=== PATIENT | male | born 1965 | race African-American/Black ===

== ENCOUNTER 2016-07-26 00:47 | Inpatient (IN) | payer SELFPAY ==
[~2016-07-26] VITALS: Ht 188 cm; Wt 130.7 kg
[~2016-07-26 00:47] MED LIST: CYCL10TA2 PO; LIDO700A4 TP; LISI-334 PO; NAPR500T3 PO
[2016-07-26 03:17] LABS: BASO % 1 % (0-3); EOS % 1 % (0-3); HEMATOCRIT 41.3 % (39.0-53.0); HEMOGLOBIN 13.8 g/dL (13.0-17.5); LYMPH # 0.5 x10^3/uL (1.0-4.8); LYMPH % 10 % (24-48); MEAN CORPUSCULAR HEMOGLOBIN 31 pg (25-35); MEAN CORPUSCULAR HGB CONC 33 g/dL (31-37); MEAN CORPUSCULAR VOLUME 93 fL (79-100); MONO % 15 % (0-9); NEUT % 74 % (31-73); PLATELET COUNT 162 x10^3/uL (140-400); RED BLOOD COUNT 4.46 x10^6/uL (4.30-5.70); RED CELL DISTRIBUTION WIDTH 13.4 % (11.5-14.5); WHITE BLOOD COUNT 5.3 x10^3/uL (4.0-11.0)
[2016-07-26 03:18] LABS: BILIRUBIN,URINE NEGATIVE (NEG); GLUCOSE,URINE NEGATIVE (NEG); NITRITE,URINE NEGATIVE (NEG); PROTEIN,URINE NEGATIVE (NEG-TRACE)
[2016-07-26 03:20] LABS: BACTERIA,URINE 0 /HPF (0-FEW); SQUAMOUS EPITHELIAL CELL,UR OCC /LPF; WBC,URINE OCC /HPF (0-4)
[2016-07-26 03:30] LABS: CALCIUM 9.2 mg/dL (8.5-10.1); CREATININE 1.1 mg/dL (0.7-1.3); GFR 86.1; POTASSIUM 3.9 mmol/L (3.5-5.1)
[2016-07-26 03:36] LABS: ALBUMIN 3.9 g/dL (3.4-5.0); DIRECT BILIRUBIN 0.1 mg/dL (0.0-0.2); TOTAL BILIRUBIN 0.4 mg/dL (0.2-1.0); TOTAL PROTEIN 7.6 g/dL (6.4-8.2)
[2016-07-26] MEDS ORDERED: ASPIRIN 325 MG TABLET ONE (04:40)
[2016-07-26] MEDS ORDERED: ASPIRIN 81 MG TAB.CHEW PO ONE (04:45)
[2016-07-26 05:05] LABS: OBC FLU VALID
--- NOTE | 2016-07-26 06:27 | PHYS DOC ---
Past Medical History Past Medical History: Hypertension, Renal Disease Additional Past Medical Histor: drug abuse Past Surgical History: Tonsillectomy Alcohol Use: Rarely Drug Use: Marijuana Adult General Chief Complaint Chief Complaint: MULTIPLE COMPLAINTS HPI HPI 51-year-old male presenting to the emergency department with cough fever and generalized body aches with nausea. Onset 2-3 days. Location lungs generalized. Duration intermittent. No alleviating factors present. Timing worse at night. Review of systems is positive for chest pain cough fevers chills myalgias headache. All other review of systems is negative unless otherwise noted in history of present illness. Review of Systems Review of Systems SEE ABOVE. Current Medications Current Medications Current Medications Medications (Trade) Dose Ordered Sig/Franko Start Time Stop Time Status Last Admin Dose Admin Aspirin (Danielle Aspirin) 325 mg STK-MED ONCE 07/26/16 04:40 07/26/16 04:41 DC Aspirin (Children'S Aspirin) 324 mg 1X ONCE 07/26/16 04:45 07/26/16 05:08 DC 07/26/16 04:45 324 MG Labetalol HCl (Normodyne) 20 mg 1X ONCE 07/26/16 06:30 07/26/16 06:31 Allergies Allergies Allergies Coded Allergies Type Severity Reaction Last Updated Verified No Known Drug Allergies 03/10/14 No Physical Exam Physical Exam Constitutional: Well developed, well nourished, no acute distress, non-toxic appearance. [] HENT: Normocephalic, atraumatic, bilateral external ears normal, oropharynx moist, no oral exudates, nose normal. Eyes: PERRLA, EOMI, conjunctiva normal, no discharge. Neck: Normal range of motion, no tenderness, supple, no stridor. [] Cardiovascular:Heart rate regular rhythm, no murmur Lungs & Thorax: Bilateral breath sounds clear to auscultation Abdomen: Bowel sounds normal, soft, no tenderness, no masses, no pulsatile masses. [] Skin: Warm, dry, no erythema, no rash. Back: No tenderness, no CVA tenderness. [] Extremities: No tenderness, no cyanosis, no clubbing, ROM intact, no edema. Neurologic: Alert and oriented X 3, normal motor function, normal sensory function, no focal deficits noted. [] Psychologic: Affect normal, judgement normal, mood normal. [] Current Patient Data Vital Signs Vital Signs Date Time Temp Pulse Resp B/P Pulse Ox O2 Delivery O2 Flow Rate FiO2 07/26/16 02:30 116 22 208/127 95 Room Air 07/26/16 01:10 100.3 100.3 Lab Values Laboratory Tests Test 07/26/16 02:35 07/26/16 03:10 07/26/16 04:38 Urine Collection Type Unknown Urine Color Yellow Urine Clarity Clear Urine pH 7.0 Urine Specific [place] 1.020 Urine Protein Negativemg/dL (NEG-TRACE) Urine Glucose (UA) Negativemg/dL (NEG) Urine Ketones (Stick) Negativemg/dL (NEG) Urine Blood Negative (NEG) Urine Nitrite Negative (NEG) Urine Bilirubin Negative (NEG) Urine Urobilinogen Dipstick 1.0mg/dL (0.2 mg/dL) Urine Leukocyte Esterase Negative (NEG) Urine RBC 1-2/HPF (0-2) Urine WBC Occ/HPF (0-4) Urine Squamous Epithelial Cells Occ/LPF Urine Amorphous Sediment Present/HPF Urine Bacteria 0/HPF (0-FEW) Urine Mucus Slight/LPF White Blood Count 5.3x10^3/uL (4.0-11.0) Red Blood Count 4.46x10^6/uL (4.30-5.70) Hemoglobin 13.8g/dL (13.0-17.5) Hematocrit 41.3% (39.0-53.0) Mean Corpuscular Volume 93fL (79-100) Mean Corpuscular Hemoglobin 31pg (25-35) Mean Corpuscular Hemoglobin Concent 33g/dL (31-37) Red Cell Distribution Width 13.4% (11.5-14.5) Platelet Count 162x10^3/uL (140-400) Neutrophils (%) (Auto) 74% (31-73) H Lymphocytes (%) (Auto) 10% (24-48) L Monocytes (%) (Auto) 15% (0-9) H Eosinophils (%) (Auto) 1% (0-3) Basophils (%) (Auto) 1% (0-3) Neutrophils # (Auto) 3.9x10^3uL (1.8-7.7) Lymphocytes # (Auto) 0.5x10^3/uL (1.0-4.8) L Monocytes # (Auto) 0.8x10^3/uL (0.0-1.1) Eosinophils # (Auto) 0.0x10^3/uL (0.0-0.7) Basophils # (Auto) 0.0x10^3/uL (0.0-0.2) Sodium Level 137mmol/L (136-145) Potassium Level 3.9mmol/L (3.5-5.1) Chloride Level 100mmol/L (98-107) Carbon Dioxide Level 28mmol/L (21-32) Anion Gap 9 (6-14) Blood Urea Nitrogen 11mg/dL (8-26) Creatinine 1.1mg/dL (0.7-1.3) Estimated GFR (Cockcroft-Gault) 86.1 Glucose Level 132mg/dL (70-99) H Calcium Level 9.2mg/dL (8.5-10.1) Total Bilirubin 0.4mg/dL (0.2-1.0) Direct Bilirubin 0.1mg/dL (0.0-0.2) Aspartate Amino Transferase (AST) 18U/L (15-37) Alanine Aminotransferase (ALT) 28U/L (16-63) Alkaline Phosphatase 58U/L (46-116) Troponin I Quantitative 0.072ng/mL (0.000-0.055) PG-Sty-O-Type Natriuretic Peptide 228pg/mL (0-124) H Total Protein 7.6g/dL (6.4-8.2) Albumin 3.9g/dL (3.4-5.0) Lipase 69U/L (73-393) L Influenza Type A Antigen Positive (NEGATIVE) Influenza Type B Antigen Negative (NEGATIVE) Laboratory Tests 07/26/16 03:10 Laboratory Tests 07/26/16 03:10 EKG EKG Sinus rhythm with a tachycardic rate. [place] is leftward. Intervals within normal limits. Mild repolarization abnormality in lead V3 that is isolated. Radiology/Procedures Radiology/Procedures [] Course & Med Decision Making Course & Med Decision Making Pertinent Labs and Imaging studies reviewed. (See chart for details) [] 51-year-old male presenting to the emergency department vital signs showed fever with tachycardia. Influenza test positive. Blood pressure elevated. On physical exam clear lungs bilaterally. EKG showed tachycardia otherwise unremarkable. Chest x-ray without obvious infiltrate or pneumothorax. Otherwise blood testing sent which showed elevated troponin. Influenza positive. Patient was given IV labetalol, Tamiflu, and aspirin. The patient was then admitted to our hospital for further evaluation workup and care. Dragon Disclaimer Dragon Disclaimer This electronic medical record was generated, in whole or in part, using a voice recognition dictation system. Departure Departure Impression: Primary Impression: Influenza Additional Impressions: Elevated troponin Hypertension Disposition: ADMITTED INPATIENT Admitting Physician: Abhishek Clark Condition: STABLE Referrals: NO PCP (PCP) Problem Qualifiers TARIQ MONET MD Jul 26, 2016 06:27
[2016-07-26] MEDS ORDERED: OSELTAMIVIR 75 MG CAPSULE PO ONE (06:30)
[2016-07-26] MEDS ORDERED: LABETALOL 20 MG/4 ML DISP.SYRIN. IVP ONE (06:30)
--- NOTE | 2016-07-26 07:40 | RAD ---
Single view chest History:COUGH, CHEST PAIN . An AP view of the chest is submitted. Comparison: None. Findings: There is some fullness in the region of azygos. Heart size is considered upper limits of normal. There is no dependent pleural fluid or pneumothorax. There is no lobar consolidation. Impression: There is some fullness in region of azygous, cannot exclude lymphadenopathy on this exam, follow-up [address] recommended. There is no infiltrate.
--- NOTE | 2016-07-26 08:31 | ACF ---
Admit Criteria Forms Admit Criteria Forms Admit Criteria Forms CHEST PAIN Clinical Indications for Admission to Inpatient Care (Place 'X' for any and all applicable criteria): Admission is indicated for chest pain and ANY ONE of the following(1)(2)(3)(4)(5 ): [ ]I. Angina with acute coronary syndrome (Also use Myocardial Infarction or Angina guideline) [ ]II. Hemodynamic instability [ ]III. Angina needing acute intervention as indicated by ALL of the following( 11)(12): [ ]a) Unstable angina is present as indicated by angina that is ANY ONE of the following: [ ]i) New onset [ ]ii) Nocturnal [ ]iii) Prolonged at rest [ ]iv) Progressive [ ]b) Angina warrants acute intervention as indicated by ANY ONE of the following: [ ]i) Recurrent angina (e.g, not responding as previously to treatment) [ ]ii) Angina at rest or with low-level activities despite initial medical therapy [ ]iii) New or presumably new ST-segment depression on ECG [ ]iv) Signs or symptoms of heart failure (eg, dyspnea, pulmonary edema) [ ]v) New or worsening mitral regurgitation [ ]vi) Hemodynamic instability [ ]vii) Dangerous arrhythmia (eg, sustained ventricular tachycardia) [ ]viii) History of percutaneous coronary intervention within 6 months [ ]ix) History of coronary artery bypass graft surgery [ ]x) JOHN risk score of 2 or greater[A] [ ]xi) History of Diabetes(14) [ ]xii) High-risk cardiac ischemia findings on noninvasive testing (e.g, echocardiogram, treadmill testing, nuclear scan) [ ]xiii) Chronic renal insufficiency (ie, estimated GFR less than 60 mL/min/1.732m) [ ]xiv) Left ventricular ejection fraction less than 40% [ ]IV. Evidence of VA (eg, cardiac biomarkers positive, ST-segment elevation on ECG) also use Myocardial Infarction Criteria Form. [ ]V. Pulmonary edema [ ]. Respiratory distress [ ]VII. Chest pain indicative of serious diagnosis other than coronary artery disease (eg, aortic dissection) [X]VIII. Contraindications and/or Inappropriate clinical situations for Observational Care in patients with Chest Pain, when ANY ONE of the following is required: [ ]a) Patient with risk factor for pulmonary embolism, acute coronary syndrome and myocardial infarction (18) [ ]b) Patient with Pulmonary embolism require an average LOS of 4.3 days, therefore emergency department observation management is inappropriate 18,23 [ ]c) Painful condition/s in the elderly, have the highest rate of recidivism after emergency department observation management (10.8%) 20,21,22 [X]d) Elevated cardiac biomarker requires intensive and exhaustive care (19) [ ]IX. General contraindications and/or Inappropriate clinical situations for Observational Care in patients with Chest Pain, when ANY ONE of the following is required: [ ]a) Prediction of prolongation of LOS based on ANY ONE of the following may be considered as a contraindication for observational care 2, 3, 4, 5, 6, 7, 8, 9, 10, 11 [ ]i) Age > 65 yrs. [ ]ii) Patient arriving by ambulance [ ]iii) Patient with high acuity [ ]iv) Patient requiring vital sign monitoring [ ]v) Patient on IV medication [ ]b) Systolic blood pressures 180mmHg 3,12 [ ]c) Patient with altered mental status including delirium and other alteration of consciousness, (3) [ ]d) Patient whose discharge disposition will be to a [facility] home or rehabilitation home should not be managed in Emergency Department Observation Unit. CMS rule requires 3 days hospital stay before such placement. 3,13 [ ]e) Patient with failure to thrive due to broad array of etiologies 3,16,17 [ ]f) Inability to ambulate 3,14 Extended stay beyond goal length of stay may be needed for (1)(28): [ ]a) Specific condition diagnosed after evaluation (eg, pulmonary embolism, aortic dissection) [ ]b) Unstable angina [ ]c) Continued suspicion of acute coronary syndrome with inability to complete needed cardiac evaluation (eg, patient clinically unable to undergo stress testing) [ ]d) Myocardial infarction (Contents from ANGINA and CHEST PAIN clinical indications for admission to inpatient care have been integrated in this form) The original [employer] content created by [employer] has been revised. The portions of the content which have been revised are identified through the use of italic text or in bold, and [facility] has neither reviewed nor approved the modified material. All other unmodified content is copyright [employer]. Please see references footnoted in the original [facility] edition 2016 KLEBER WARD Jul 26, 2016 08:31
[2016-07-26] MEDS: IV NORMAL SALINE 1000ML BAG 1,000 ML IV SCH ×2 (08:51→22:18)
[2016-07-26] MEDS: ENOXAPARIN 40 MG/0.4 ML DISP.SYRIN. SQ SCH (08:52)
[2016-07-26] MEDS: ASPIRIN 325 MG TABLET PO SCH (08:52)
[2016-07-26] MEDS: MORPHINE SULFATE 2 MG/ML DISP.SYRIN. IV PRN (08:53)
[2016-07-26] MEDS: HYDROCHLOROTHIAZIDE 25 MG TABLET PO SCH (09:41)
[2016-07-26] MEDS ORDERED: LISINOPRIL 10 MG TABLET PO SCH (10:00)
[2016-07-26] MEDS ORDERED: NAPROXEN 500 MG TABLET PO PRN (11:30)
[2016-07-26] MEDS ORDERED: POTASSIUM CHLORIDE 20 MEQ TABLET.ER. PO ONE (13:45)
[2016-07-26] MEDS ORDERED: FUROSEMIDE 40 MG/4 ML VIAL IVP ONE (13:45)
[2016-07-26 15:00] VITALS: BP 171/120
--- NOTE | 2016-07-26 15:37 | CONS ---
DATE OF CONSULTATION: 07/26/2016 REASON FOR CONSULTATION: Chest pain. HISTORY OF PRESENT ILLNESS: The patient is a pleasant 49-year-old gentleman without any significant past medical history except for hypertension for which he has not been taking his medications, presents to the hospital with progressive cough and sputum production and has been diagnosed with influenza type A illness. He reports chest pain with coughing. Does not have any angina at home. He is an active individual and has not had any dyspnea prior to presentation with this illness. PAST MEDICAL HISTORY: Hypertension. SOCIAL HISTORY: The patient denies any alcohol, tobacco or illicit drug use. He is not . FAMILY HISTORY: Noncontributory. ALLERGIES: No known drug allergies. CURRENT CARDIOVASCULAR MEDICATIONS: 1. Hydrochlorothiazide 25 mg daily. 2. Aspirin 325 mg daily. REVIEW OF SYSTEMS: Negative for 10 out of 14 systems reviewed, unless otherwise mentioned above in HPI. PHYSICAL EXAMINATION: VITAL SIGNS: Afebrile, 86, 18, 172/120, pulse ox 99%. GENERAL: He is alert and oriented, in no acute distress. HEAD AND NECK: Unremarkable. HEART: Regular rate and rhythm without any murmurs, rubs or gallops. LUNGS: Clear to auscultation. ABDOMEN: Soft, nontender, nondistended. EXTREMITIES: Without clubbing, cyanosis or edema. NEUROLOGIC: No focal deficits. MUSCULOSKELETAL: No trauma. LABORATORY DATA: Influenza type A positivity, normal creatinine with mildly elevated troponin to 0.072, now down trending to 0.059 in the setting of malignant hypertension with systolic blood pressures above 180. Chest x-ray is notable for some possible lymphadenopathy, but otherwise no obvious focal infiltrates are noted. EKG reviewed and is unremarkable. IMPRESSION: 1. Influenza positive presentation with pulmonary disease. 2. Positive troponin, likely in the setting of malignant hypertension and acute distress. RECOMMENDATIONS: 1. At this present time, suggest continue treatment for his influenza. 2. Continue aspirin and blood pressure treatment for his known hypertensive heart disease. 3. No further cardiac testing necessary at this time. Continue supportive care. Follow up on an outpatient basis, he has any further cardiac symptoms. We will attempt to initiate him on medications for his hypertension and hopefully we will be able to achieve blood pressure control next 24 hours. Anticipate discharge from a cardiac perspective tomorrow if there are no further issues. Thank you for this consultation. TRACY PEREZ MD DR: DENISE/giles JOB#: [id number] / [id number]
[2016-07-26] MEDS ORDERED: SODIUM CHLORIDE 0.65% NASAL SPRAY 45ML BOTTLE. NS PRN (16:30)
[2016-07-26] MEDS: CHLORTHALIDONE 25 MG TABLET PO SCH (17:17)
[2016-07-26] MEDS: CARVEDILOL 12.5 MG TABLET PO SCH (17:18)
[2016-07-26] MEDS: LISINOPRIL 10 MG TABLET PO SCH (17:18)
--- NOTE | 2016-07-26 18:50 | EKG ---
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
[2016-07-26 19:00] VITALS: BP 162/101
[2016-07-26 19:51] VITALS: BP 162/101
[2016-07-26 20:39] VITALS: BP 150/112
[2016-07-26 23:41] VITALS: BP 166/96
[2016-07-27 02:12] VITALS: BP 174/105
[2016-07-27] MEDS: CYCLOBENZAPRINE 10 MG TABLET. PO PRN ×2 (02:27→10:00)
[2016-07-27] MEDS: MORPHINE SULFATE 2 MG/ML DISP.SYRIN. IV PRN (02:28)
--- NOTE | 2016-07-27 05:20 | HP ---
ADMIT DATE: 07/26/2016 CHIEF COMPLAINT: Cough, fever, weakness and nausea. HISTORY OF PRESENT ILLNESS: The patient is a pleasant middle-aged male who presents with the above chief complaints that have been occurring for 3 days. He tried increasing his home meds, was not working. While in the ER, he was noted to have an elevated troponin of 0.072. He is also flu positive. I have discussed the case with ER physician. We are going to admit the patient, give him Tamiflu and do a cardiac workup. PAST MEDICAL HISTORY: Hypertension, renal disease, drug abuse, tonsillectomy. ALLERGIES: None. FAMILY HISTORY: Hypertension. SOCIAL HISTORY: He smokes marijuana. He does not drink. I guess he used to use drugs. MEDICATIONS: Reviewed, please refer to the MRAD. REVIEW OF SYSTEMS: GENERAL: No history of weight change, weakness or fevers. SKIN: No bruising, hair changes or rashes. EYES: No blurred, double or loss of vision. NOSE AND THROAT: No history of nosebleeds, hoarseness or sore throat. HEART: No history of palpitations, chest pain or shortness of breath on exertion. LUNGS: He complains of shortness of breath, cough and weakness. GASTROINTESTINAL: Denies changes in appetite, nausea, vomiting, diarrhea or constipation. GENITOURINARY: No history of frequency, urgency, hesitancy or nocturia. NEUROLOGIC: Denies history of numbness, tingling, tremor or weakness. PSYCHIATRIC: No history of panic, anxiety or depression. ENDOCRINE: No history of heat or cold intolerance, polyuria or polydipsia. EXTREMITIES: Denies muscle weakness, joint pain, pain on walking or stiffness. PHYSICAL EXAMINATION: VITAL SIGNS: Temperature afebrile, pulse 74, respirations 18, blood pressure ____. HEART: Distant S1, S2. LUNGS: Slight hoarseness with some crackles on the right base. ENDOCRINE: No thyromegaly. LYMPHATICS: No cervical nodes. HEMATOPOIETIC: No bruising. ABDOMEN: Soft, positive bowel sounds. EXTREMITIES: No edema. SKIN: No rashes. PSYCHIATRIC: He is a little depressed. VASCULAR: Good capillary refill. LABORATORY DATA: Electrolytes normal other than glucose of 132.: Troponin is 0.072. BNP 228, lipase 69. White count 5, hemoglobin 13, platelets 162. Urinalysis negative. Flu testing is positive for influenza A. ASSESSMENT AND PLAN: Influenza A and elevated troponin. The patient is being admitted. We will give him Tamiflu. Consult Infectious Disease and Cardiology. Continue home medicines, IV fluids. Consult Pulmonary Medicine. ISMAEL KAPLAN DO DR: SARAH BETH/giles JOB#: [id number] / [id number]
[2016-07-27 06:23] LABS: CALCIUM 9.2 mg/dL (8.5-10.1); CREATININE 1.1 mg/dL (0.7-1.3); GFR 86.1; POTASSIUM 3.7 mmol/L (3.5-5.1)
[2016-07-27] MEDS ORDERED: LISINOPRIL 20 MG TABLET PO SCH (09:00)
[2016-07-27] MEDS ORDERED: LIDOCAINE (700MG/PATCH) PATCH. TP SCH (09:00)
[2016-07-27] MEDS: ENOXAPARIN 40 MG/0.4 ML DISP.SYRIN. SQ SCH (09:00)
[2016-07-27] MEDS: CHLORTHALIDONE 25 MG TABLET PO SCH (09:59)
[2016-07-27] MEDS: HYDROCHLOROTHIAZIDE 25 MG TABLET PO SCH (09:59)
[2016-07-27] MEDS: ASPIRIN 325 MG TABLET PO SCH (10:00)
[2016-07-27] MEDS: CARVEDILOL 12.5 MG TABLET PO SCH (10:00)
[2016-07-27] MEDS: LISINOPRIL 10 MG TABLET PO SCH (10:00)
[2016-07-27] MEDS: IV NORMAL SALINE 1000ML BAG 1,000 ML IV SCH (10:10)
[2016-07-27 10:38] VITALS: BP 140/111
[2016-07-27 10:43] LABS: PLT ESTIMATE ADEQUATE (ADEQUATE)
[2016-07-27 10:46] LABS: MEAN CORPUSCULAR VOLUME 94 fL (79-100); PLATELET COUNT 163 x10^3/uL (140-400); RED CELL DISTRIBUTION WIDTH 13.3 % (11.5-14.5); WHITE BLOOD COUNT 3.2 x10^3/uL (4.0-11.0)
[2016-07-27 10:47] VITALS: BP 150/103
[2016-07-27 11:11] LABS: BASO % 1 % (0-3); EOS % 0 % (0-3); HEMATOCRIT 43.7 % (39.0-53.0); HEMOGLOBIN 14.4 g/dL (13.0-17.5); LYMPH # 1.1 x10^3/uL (1.0-4.8); LYMPH % 34 % (24-48); MEAN CORPUSCULAR HEMOGLOBIN 31 pg (25-35); MEAN CORPUSCULAR HGB CONC 33 g/dL (31-37); MONO % 18 % (0-9); NEUT % 47 % (31-73); RED BLOOD COUNT 4.63 x10^6/uL (4.30-5.70)
[2016-07-27] MEDS ORDERED: CHLO25TA PO (11:29)
[2016-07-27] MEDS ORDERED: LISI-334 PO (11:29)
[2016-07-27] MEDS ORDERED: HYDR25TA9 PO (11:29)
[2016-07-27] MEDS ORDERED: CARV12.52 PO (11:29)
[2016-07-27] MEDS ORDERED: OSEL75CA PO (11:30)
[2016-07-27] MEDS ORDERED: LISINOPRIL 10 MG TABLET PO ONE (11:30)
[2016-07-27] MEDS ORDERED: FUROSEMIDE 20 MG/2 ML VIAL IVP ONE (11:30)
--- NOTE | 2016-07-27 11:33 | PDOC ---
PROGRESS NOTES Chief Complaint Chief Complaint CC: chest pain HTN URGENCY plan HCTZ LASIX LISINOPRIL ANTICIPATED DC TODAY IF SBP <150 Vitals Vitals Vital Signs Date Time Temp Pulse Resp B/P Pulse Ox O2 Delivery O2 Flow Rate FiO2 07/27/16 10:47 150/103 07/27/16 10:38 97.5 104 16 95 Room Air 97.5 Physical Exam General: Alert, Oriented X3 Heart: Normal S1, Normal S2 Lungs: Clear Abdomen: Normal bowel sounds, Soft Labs LABS Laboratory Tests Test 07/26/16 13:00 07/26/16 18:15 07/27/16 03:00 Troponin I Quantitative 0.059ng/mL (0.000-0.055) 0.070ng/mL (0.000-0.055) White Blood Count 3.2x10^3/uL (4.0-11.0) Red Blood Count 4.63x10^6/uL (4.30-5.70) Hemoglobin 14.4g/dL (13.0-17.5) Hematocrit 43.7% (39.0-53.0) Mean Corpuscular Volume 94fL (79-100) Mean Corpuscular Hemoglobin 31pg (25-35) Mean Corpuscular Hemoglobin Concent 33g/dL (31-37) Red Cell Distribution Width 13.3% (11.5-14.5) Platelet Count 163x10^3/uL (140-400) Neutrophils (%) (Auto) 47% (31-73) Lymphocytes (%) (Auto) 34% (24-48) Monocytes (%) (Auto) 18% (0-9) Eosinophils (%) (Auto) 0% (0-3) Basophils (%) (Auto) 1% (0-3) Neutrophils # (Auto) 1.5x10^3uL (1.8-7.7) Lymphocytes # (Auto) 1.1x10^3/uL (1.0-4.8) Monocytes # (Auto) 0.6x10^3/uL (0.0-1.1) Eosinophils # (Auto) 0.0x10^3/uL (0.0-0.7) Basophils # (Auto) 0.0x10^3/uL (0.0-0.2) Platelet Estimate Adequate (ADEQUATE) Giant Platelets Present Sodium Level 136mmol/L (136-145) Potassium Level 3.7mmol/L (3.5-5.1) Chloride Level 97mmol/L (98-107) Carbon Dioxide Level 27mmol/L (21-32) Anion Gap 12 (6-14) Blood Urea Nitrogen 11mg/dL (8-26) Creatinine 1.1mg/dL (0.7-1.3) Estimated GFR (Cockcroft-Gault) 86.1 Glucose Level 64mg/dL (70-99) Calcium Level 9.2mg/dL (8.5-10.1) Assessment and Plan Assessmemt and Plan Problems Medical Problems: (1) Elevated troponin Status: Acute (2) Hypertension Status: Acute (3) Influenza Status: Acute Problems: Comment Review of Relevant I have reviewed the following items torres (where applicable) has been applied. Labs Laboratory Tests Test 07/26/16 02:35 07/26/16 03:10 07/26/16 04:38 07/26/16 13:00 Urine Collection Type Unknown Urine Color Yellow Urine Clarity Clear Urine pH 7.0 Urine Specific [place] 1.020 Urine Protein Negativemg/dL (NEG-TRACE) Urine Glucose (UA) Negativemg/dL (NEG) Urine Ketones (Stick) Negativemg/dL (NEG) Urine Blood Negative (NEG) Urine Nitrite Negative (NEG) Urine Bilirubin Negative (NEG) Urine Urobilinogen Dipstick 1.0mg/dL (0.2 mg/dL) Urine Leukocyte Esterase Negative (NEG) Urine RBC 1-2/HPF (0-2) Urine WBC Occ/HPF (0-4) Urine Squamous Epithelial Cells Occ/LPF Urine Amorphous Sediment Present/HPF Urine Bacteria 0/HPF (0-FEW) Urine Mucus Slight/LPF White Blood Count 5.3x10^3/uL (4.0-11.0) Red Blood Count 4.46x10^6/uL (4.30-5.70) Hemoglobin 13.8g/dL (13.0-17.5) Hematocrit 41.3% (39.0-53.0) Mean Corpuscular Volume 93fL (79-100) Mean Corpuscular Hemoglobin 31pg (25-35) Mean Corpuscular Hemoglobin Concent 33g/dL (31-37) Red Cell Distribution Width 13.4% (11.5-14.5) Platelet Count 162x10^3/uL (140-400) Neutrophils (%) (Auto) 74% (31-73) Lymphocytes (%) (Auto) 10% (24-48) Monocytes (%) (Auto) 15% (0-9) Eosinophils (%) (Auto) 1% (0-3) Basophils (%) (Auto) 1% (0-3) Neutrophils # (Auto) 3.9x10^3uL (1.8-7.7) Lymphocytes # (Auto) 0.5x10^3/uL (1.0-4.8) Monocytes # (Auto) 0.8x10^3/uL (0.0-1.1) Eosinophils # (Auto) 0.0x10^3/uL (0.0-0.7) Basophils # (Auto) 0.0x10^3/uL (0.0-0.2) Sodium Level 137mmol/L (136-145) Potassium Level 3.9mmol/L (3.5-5.1) Chloride Level 100mmol/L (98-107) Carbon Dioxide Level 28mmol/L (21-32) Anion Gap 9 (6-14) Blood Urea Nitrogen 11mg/dL (8-26) Creatinine 1.1mg/dL (0.7-1.3) Estimated GFR (Cockcroft-Gault) 86.1 Glucose Level 132mg/dL (70-99) Calcium Level 9.2mg/dL (8.5-10.1) Total Bilirubin 0.4mg/dL (0.2-1.0) Direct Bilirubin 0.1mg/dL (0.0-0.2) Aspartate Amino Transf (AST/SGOT) 18U/L (15-37) Alanine Aminotransferase (ALT/SGPT) 28U/L (16-63) Alkaline Phosphatase 58U/L (46-116) Troponin I Quantitative 0.072ng/mL (0.000-0.055) 0.059ng/mL (0.000-0.055) HX-Fmc-J-Type Natriuretic Peptide 228pg/mL (0-124) Total Protein 7.6g/dL (6.4-8.2) Albumin 3.9g/dL (3.4-5.0) Lipase 69U/L (73-393) Influenza Type A Antigen Positive (NEGATIVE) Influenza Type B Antigen Negative (NEGATIVE) Test 07/26/16 18:15 07/27/16 03:00 Troponin I Quantitative 0.070ng/mL (0.000-0.055) White Blood Count 3.2x10^3/uL (4.0-11.0) Red Blood Count 4.63x10^6/uL (4.30-5.70) Hemoglobin 14.4g/dL (13.0-17.5) Hematocrit 43.7% (39.0-53.0) Mean Corpuscular Volume 94fL (79-100) Mean Corpuscular Hemoglobin 31pg (25-35) Mean Corpuscular Hemoglobin Concent 33g/dL (31-37) Red Cell Distribution Width 13.3% (11.5-14.5) Platelet Count 163x10^3/uL (140-400) Neutrophils (%) (Auto) 47% (31-73) Lymphocytes (%) (Auto) 34% (24-48) Monocytes (%) (Auto) 18% (0-9) Eosinophils (%) (Auto) 0% (0-3) Basophils (%) (Auto) 1% (0-3) Neutrophils # (Auto) 1.5x10^3uL (1.8-7.7) Lymphocytes # (Auto) 1.1x10^3/uL (1.0-4.8) Monocytes # (Auto) 0.6x10^3/uL (0.0-1.1) Eosinophils # (Auto) 0.0x10^3/uL (0.0-0.7) Basophils # (Auto) 0.0x10^3/uL (0.0-0.2) Platelet Estimate Adequate (ADEQUATE) Giant Platelets Present Sodium Level 136mmol/L (136-145) Potassium Level 3.7mmol/L (3.5-5.1) Chloride Level 97mmol/L (98-107) Carbon Dioxide Level 27mmol/L (21-32) Anion Gap 12 (6-14) Blood Urea Nitrogen 11mg/dL (8-26) Creatinine 1.1mg/dL (0.7-1.3) Estimated GFR (Cockcroft-Gault) 86.1 Glucose Level 64mg/dL (70-99) Calcium Level 9.2mg/dL (8.5-10.1) Laboratory Tests Test 07/26/16 13:00 07/26/16 18:15 07/27/16 03:00 Troponin I Quantitative 0.059ng/mL (0.000-0.055) 0.070ng/mL (0.000-0.055) White Blood Count 3.2x10^3/uL (4.0-11.0) Red Blood Count 4.63x10^6/uL (4.30-5.70) Hemoglobin 14.4g/dL (13.0-17.5) Hematocrit 43.7% (39.0-53.0) Mean Corpuscular Volume 94fL (79-100) Mean Corpuscular Hemoglobin 31pg (25-35) Mean Corpuscular Hemoglobin Concent 33g/dL (31-37) Red Cell Distribution Width 13.3% (11.5-14.5) Platelet Count 163x10^3/uL (140-400) Neutrophils (%) (Auto) 47% (31-73) Lymphocytes (%) (Auto) 34% (24-48) Monocytes (%) (Auto) 18% (0-9) Eosinophils (%) (Auto) 0% (0-3) Basophils (%) (Auto) 1% (0-3) Neutrophils # (Auto) 1.5x10^3uL (1.8-7.7) Lymphocytes # (Auto) 1.1x10^3/uL (1.0-4.8) Monocytes # (Auto) 0.6x10^3/uL (0.0-1.1) Eosinophils # (Auto) 0.0x10^3/uL (0.0-0.7) Basophils # (Auto) 0.0x10^3/uL (0.0-0.2) Platelet Estimate Adequate (ADEQUATE) Giant Platelets Present Sodium Level 136mmol/L (136-145) Potassium Level 3.7mmol/L (3.5-5.1) Chloride Level 97mmol/L (98-107) Carbon Dioxide Level 27mmol/L (21-32) Anion Gap 12 (6-14) Blood Urea Nitrogen 11mg/dL (8-26) Creatinine 1.1mg/dL (0.7-1.3) Estimated GFR (Cockcroft-Gault) 86.1 Glucose Level 64mg/dL (70-99) Calcium Level 9.2mg/dL (8.5-10.1) Medications Current Medications Aspirin (Children'S Aspirin) 324 mg 1X ONCE PO Last administered on 07/26/16 04:45; Start 07/26/16 at 04:45; Stop 07/26/16 at 05:08; Status DC Aspirin (Danielle Aspirin) 325 mg STK-MED ONCE .ROUTE ; Start 07/26/16 at 04:40; Stop 07/26/16 at 04:41; Status DC Labetalol HCl (Normodyne) 20 mg 1X ONCE IVP Last administered on 07/26/16 06: 23; Start 07/26/16 at 06:30; Stop 07/26/16 at 06:31; Status DC Oseltamivir Phosphate 75 mg 75 mg 1X ONCE PO Last administered on 07/26/16 07 :06; Start 07/26/16 at 06:30; Stop 07/26/16 at 06:31; Status DC Sodium Chloride (Iv Sodium Chloride 0.9% 1000ml Bag) 1,000 ml @ 75 mls/hr [id number] IV Last administered on 07/26/16 22:18; Start 07/26/16 at 07:30 Aspirin (Danielle Aspirin) 325 mg [id number] PO Last administered on 07/27/16 10: 00; Start 07/26/16 at 08:00 Morphine Sulfate 2 mg PRN Q2HR PRN IV PAIN Last administered on 07/27/16 02:28 ; Start 07/26/16 at 07:30 Enoxaparin Sodium (Lovenox 40mg Syringe) 40 mg Q24H SQ Last administered on 08:52; Start 07/26/16 at 09:00 Lisinopril (Prinivil) 10 mg DAILY PO Last administered on 07/26/16 09:54; Start 07/26/16 at 10:00; Stop 07/26/16 at 11:22; Status DC Hydrochlorothiazide (Hydrodiuril) 25 mg DAILY PO Last administered on 09:59; Start 07/26/16 at 10:00 Cyclobenzaprine HCl (Flexeril) 10 mg PRN TID PRN PO MUSCLE PAIN Last administered on 07/27/16 10:00; Start 07/26/16 at 11:30 Lidocaine (Lidoderm) 1 patch DAILY TP ; Start 07/27/16 at 09:00 Lisinopril (Prinivil) 20 mg DAILY PO ; Start 07/27/16 at 09:00; Stop 07/27/16 at 09:00; Status DC Naproxen (Naprosyn) 500 mg PRN BID PRN PO PAIN; Start 07/26/16 at 11:30 Furosemide (Lasix) 60 mg 1X ONCE IVP Last administered on 07/26/16 13:44; Start 07/26/16 at 13:45; Stop 07/26/16 at 13:46; Status DC Potassium Chloride (Klor-Con) 20 meq 1X ONCE PO Last administered on 13:44; Start 07/26/16 at 13:45; Stop 07/26/16 at 13:46; Status DC Carvedilol (Coreg) 12.5 mg BIDWMEALS PO Last administered on 07/27/16 10:00; Start 07/26/16 at 17:00 Chlorthalidone (Thalitone) 25 mg DAILY PO Last administered on 07/27/16 09:59 ; Start 07/26/16 at 15:00 Lisinopril (Prinivil) 10 mg DAILY PO Last administered on 07/27/16 10:00; Start 07/26/16 at 15:00 Sodium Chloride (Saline Mist Nasal) 1 xiomara PRN Q1HR PRN NS NASAL CONGESTION; Start 07/26/16 at 16:30 Lisinopril (Prinivil) 10 mg 1X ONCE PO ; Start 07/27/16 at 11:30; Stop at 11:31 Oseltamivir Phosphate (Tamiflu) 75 mg BID PO ; Start 07/27/16 at 21:00; Stop at 20:59 Active Scripts Active Tamiflu (Oseltamivir Phosphate) 75 Mg Capsule 75 Mg PO BID Hydrochlorothiazide Tablet (Hydrochlorothiazide) 25 Mg Tablet 25 Mg PO DAILY Carvedilol 12.5 Mg Tablet 12.5 Mg PO BIDWMEALS Chlorthalidone 25 Mg Tablet 25 Mg PO DAILY Lisinopril 20 Mg Tablet 20 Mg PO DAILY Naproxen 500 Mg Tablet 1 Tab PO BID PRN Cyclobenzaprine Hcl 10 Mg Tablet 1 Tab PO TID PRN Lidoderm (Lidocaine) 700 Mg Adh..patch 1 Patch TP DAILY Vitals/I & O Vital Sign - Last 24 Hours 07/26/16 07/26/16 07/26/16 07/26/16 12:00 13:48 15:00 16:00 Temp 98.0 98.0 Pulse 72 83 80 Resp 18 17 B/P 172/99 172/120 171/120 Pulse Ox 95 99 94 O2 Delivery Room Air Room Air 07/26/16 07/26/16 07/26/16 07/26/16 17:18 17:18 19:00 19:51 Temp 98.9 98.9 98.9 98.9 Pulse 80 80 84 84 Resp 17 B/P 171/120 171/120 162/101 162/101 Pulse Ox 96 96 O2 Delivery Room Air Room Air 07/26/16 07/26/16 07/26/16 07/27/16 20:08 20:39 23:41 02:12 Temp 99.1 98.5 98.9 99.1 98.5 98.9 Pulse 87 85 72 Resp 20 18 20 B/P 150/112 166/96 174/105 Pulse Ox 98 97 97 O2 Delivery Room Air Room Air Room Air Room Air 07/27/16 07/27/16 07/27/16 07/27/16 02:28 02:57 10:00 10:00 Pulse 72 72 Resp 18 20 B/P 174/105 174/105 Pulse Ox 97 97 O2 Delivery Room Air Room Air 07/27/16 07/27/16 10:38 10:47 Temp 97.5 97.5 Pulse 104 Resp 16 B/P 140/111 150/103 Pulse Ox 95 O2 Delivery Room Air Intake and Output 07/26/16 07/26/16 07/27/16 15:00 23:00 07:00 Intake Total 480 ml 600 ml Output Total 850 ml Balance -370 ml 600 ml LIDYA SPRING MD Jul 27, 2016 11:33
[2016-07-27 12:14] VITALS: BP 150/103
--- NOTE | 2016-07-27 12:47 | EKG ---
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
[2016-07-27] MEDS ORDERED: OSELTAMIVIR 75 MG CAPSULE PO ONE (13:30)
[2016-07-27] MEDS ORDERED: OSELTAMIVIR 75 MG CAPSULE PO SCH (21:00)
== END 2016-07-27 14:15 | disposition home or self-care (01) | DRG 153 ==
LOC: ER 00:47 → ED HOLD 06:00 → 2 NORTH 14:20
PROVIDERS: ADMIT Internal Medicine; ATTEND Internal Medicine
DX: J11.1 Influenza due to unidentified influenza virus with other respiratory manifestations (principal); I10 Essential (primary) hypertension; N28.9 Disorder of kidney and ureter, unspecified; J98.4 Other disorders of lung; Z82.49 Family history of ischemic heart disease and other diseases of the circulatory system; F12.90 Cannabis use, unspecified, uncomplicated; I16.0 Hypertensive urgency; Z79.82 Long term (current) use of aspirin; Z79.899 Other long term (current) drug therapy
CPT/HCPCS: 36415; 71010; 80048; 80076; 81001; 83690; 83880; 84484; 85007; 85027; 87804; 93005; 96374; 96375; J1650; J1940; J2270; J3490; J7030; 99285-25

== ENCOUNTER 2016-10-04 15:16 | Emergency (ER) | payer SELFPAY ==
[~2016-10-04] VITALS: Ht 189.2 cm; Wt 131.5 kg
[~2016-10-04 15:16] MED LIST changes: +CARV12.52 PO; +CHLO25TA PO; +HYDR25TA9 PO; +OSEL75CA PO
[2016-10-04 15:33] VITALS: BP 154/101
[2016-10-04] MEDS ORDERED: OXYC-323 PO (16:26)
--- NOTE | 2016-10-04 16:26 | PHYS DOC ---
Past Medical History Past Medical History: Hypertension, Renal Disease Additional Past Medical Histor: drug abuse Past Surgical History: Tonsillectomy Additional Information: 1 ppd Alcohol Use: Occasionally Drug Use: Marijuana Adult General Chief Complaint Chief Complaint: ABSCESS HPI HPI Patient is a 51 year old male with history of renal disease and hypertension who presents today with an abscess of the left buttock that he has had for 2 days. Patient denies any fever. He states the abscess opened up today and started draining. Patient has history of previous abscess. Review of Systems Review of Systems Constitutional: Denies fever or chills [] Eyes: Denies change in visual acuity, redness, or eye pain [] Musculoskeletal: Denies back pain or joint pain [] Integument: Left buttock abscess Neurologic: Denies headache, focal weakness or sensory changes [] Endocrine: Denies polyuria or polydipsia [] Allergies Allergies Allergies Coded Allergies Type Severity Reaction Last Updated Verified No Known Drug Allergies 03/10/14 No Physical Exam Physical Exam Constitutional: Well developed, well nourished, no acute distress, non-toxic appearance. [] HENT: Normocephalic, atraumatic, bilateral external ears normal, oropharynx moist, no oral exudates, nose normal. [] Skin: Left inner buttock with an open abscess draining yellow bloody none purulent material, there is no redness or warmth to the area. Back: No tenderness, no CVA tenderness. [] Extremities: No tenderness, no cyanosis, no clubbing, ROM intact, no edema. [] Neurologic: Alert and oriented X 3, normal motor function, normal sensory function, no focal deficits noted. [] Psychologic: Affect normal, judgement normal, mood normal. [] Current Patient Data Vital Signs Vital Signs Date Time Temp Pulse Resp B/P Pulse Ox O2 Delivery O2 Flow Rate FiO2 10/04/16 15:33 97.7 107 18 99 Room Air 97.7 EKG EKG [] Radiology/Procedures Radiology/Procedures Indication: abscess left inner buttock Procedure: The patient was positioned appropriately. Local anesthesia was not applicable. Moderate amount of nonpurulent yellow bloody material material was expressed. The drainage cavity was irrigated and covered with sterile gauze. The patients tetanus status updated as needed. The patient tolerated the procedure well. Complications: none.[] Course & Med Decision Making Course & Med Decision Making Pertinent Labs and Imaging studies reviewed. (See chart for details) Patient has an abscess of the left inner buttock which was drained as noted in procedures. He is to follow-up with his PCP or the provided general surgeon in 1 -2 weeks. His tetanus is up-to-date. He was discharged in stable condition. Dragon Disclaimer Dragon Disclaimer This electronic medical record was generated, in whole or in part, using a voice recognition dictation system. Departure Departure Impression: Primary Impression: Abscess of left buttock Disposition: HOME, SELF-CARE Condition: STABLE Referrals: NO PCP (PCP) NICHOLAS BRENNAN MD Please follow up with the provided general surgeon in 2 weeks Patient Instructions: Abscess, [id number] Additional Instructions: Please keep the abscess area clean and dry. You can cover defeats draining. Take the prescribed medicines as ordered. Follow-up with your own doctor or the provided general surgeon or infectious disease doctor in the next 1-2 weeks for chronic abscesses. Scripts Oxycodone/Apap 5-325 (Percocet 5-325 Mg Tablet)1 Each Tablet1-2 Tab PO Q4-6HRS # 12 TAB Prov:MICHI MEJIA APRN 10/04/16 MICHI MEJIA APRN Oct 04, 2016 16:26
== END 2016-10-04 16:40 | disposition home or self-care (01) ==
LOC: ER 15:16
DX: L02.31 Cutaneous abscess of buttock (principal); I10 Essential (primary) hypertension; F17.200 Nicotine dependence, unspecified, uncomplicated; F12.10 Cannabis abuse, uncomplicated
CPT/HCPCS: 10060; 99283-25

== ENCOUNTER 2017-07-27 08:15 | Inpatient (IN) | payer SELFPAY ==
[2017-07-27 08:40] LABS: ADD MAN DIFF? NO
[2017-07-27 08:42] LABS: BASO # 0.1 x10^3/uL (0.0-0.2); BASO % 1 % (0-3); EOS # 0.3 x10^3/uL (0.0-0.7); EOS % 4 % (0-3); HEMATOCRIT 44.8 % (39.0-53.0); HEMOGLOBIN 14.7 g/dL (13.0-17.5); LYMPH # 2.1 x10^3/uL (1.0-4.8); LYMPH % 34 % (24-48); MEAN CORPUSCULAR HEMOGLOBIN 31 pg (25-35); MEAN CORPUSCULAR HGB CONC 33 g/dL (31-37); MEAN CORPUSCULAR VOLUME 93 fL (79-100); MONO # 0.4 x10^3/uL (0.0-1.1); MONO % 7 % (0-9); NEUT # 3.3 x10^3uL (1.8-7.7); NEUT % 54 % (31-73); PLATELET COUNT 215 x10^3/uL (140-400); RED BLOOD COUNT 4.81 x10^6/uL (4.30-5.70); WHITE BLOOD COUNT 6.2 x10^3/uL (4.0-11.0)
[2017-07-27] MEDS: methylPREDNISolone SOD SUCC PF 125 MG/2 ML VIAL. IV (08:44)
[2017-07-27 08:53] LABS: ANION GAP 9 (6-14); BLOOD UREA NITROGEN 14 mg/dL (8-26); BUN/CREATININE RATIO 13 (6-20); CALCIUM 9.2 mg/dL (8.5-10.1); CARBON DIOXIDE 29 mmol/L (21-32); CHLORIDE 99 mmol/L (98-107); CREATININE 1.1 mg/dL (0.7-1.3); GFR 85.7; GLUCOSE 123 mg/dL (70-99); POTASSIUM 3.9 mmol/L (3.5-5.1); SODIUM 137 mmol/L (136-145)
[2017-07-27 08:59] LABS: ALBUMIN 3.6 g/dL (3.4-5.0); ALBUMIN/GLOBULIN RATIO 0.9 (1.0-1.7); ALK PHOS 75 U/L (46-116); ALT (SGPT) 63 U/L (16-63); AST (SGOT) 41 U/L (15-37); TOTAL BILIRUBIN 0.3 mg/dL (0.2-1.0); TOTAL PROTEIN 7.8 g/dL (6.4-8.2)
[2017-07-27 09:02] LABS: TROPONINI 0.314 ng/mL (0.000-0.055)
[2017-07-27 09:05] LABS: NT-PRO BNP 1055 pg/mL (0-124)
[2017-07-27] MEDS: ALBUTEROL SULFATE 2.5 MG/3 ML NEBU. CONT NEB (09:07)
[2017-07-27] MEDS: IPRATROPIUM BROMIDE 0.5 MG/2.5 ML NEBU. NEB (09:08)
[2017-07-27] MEDS: cloNIDine HCL 0.1 MG TABLET PO (09:12)
[2017-07-27] MEDS: ONDANSETRON PF 4 MG/2 ML VIAL. IV (09:24)
[2017-07-27] MEDS: fentaNYL PF VIAL 100 MCG/2 ML VIAL IV (09:26)
[2017-07-27 09:33] LABS: INFLUENZA A PATIENT NEGATIVE (NEGATIVE); INFLUENZA B PATIENT NEGATIVE (NEGATIVE); OBC FLU VALID
[2017-07-27] MEDS: FUROSEMIDE 40 MG/4 ML VIAL. IVP ×2 (09:42→15:07)
[2017-07-27] MEDS ORDERED: ONDANSETRON PF 4 MG/2 ML VIAL. IV (10:15)
[2017-07-27] MEDS: ASPIRIN CHEWABLE 81 MG TABLET. PO (10:21)
[2017-07-27 10:38] LABS: BARBITURATES NEG (NEG); BENZODIAZEPINES NEG (NEG); CANNABINOIDS POS (NEG); COCAINE POS (NEG); METHADONE NEG (NEG); OPIATES NEG (NEG); PHENCYCLIDINE NEG (NEG)
[2017-07-27 10:40] LABS: AMPHETAMINE/METHAMPHETAMINE NEG (NEG); ETHANOL, URINE NEG (NEG)
[2017-07-27] MEDS: IPRATRPIUM/ALBUTEROL 0.5/2.5MG 3 ML NEBU. NEB ×3 (11:21→20:00)
[2017-07-27] MEDS ORDERED: hydrALAZINE 20 MG/ML VIAL. IVP (12:15)
[2017-07-27 13:02] LABS: CHOLESTEROL 241 mg/dL (0-200); HDLC 46 mg/dL (40-60); LDLC 163 mg/dL (0-100); NON-HDL CHOLESTEROL 195 mg/dL (0-129); TRIGLYCERIDES 159 mg/dL (0-150); VLDLC 32 mg/dL (0-40)
[2017-07-27 13:03] LABS: CHOLESTEROL/HDL RATIO 5.2
[2017-07-27 13:13] LABS: THYROID STIM HORMONE (TSH) 1.089 uIU/mL (0.358-3.74)
[2017-07-27 13:50] LABS: TROPONINI 0.287 ng/mL (0.000-0.055)
[2017-07-27] MEDS ORDERED: INFLUENZA VAX SCREEN BY RX. MC (14:00)
[2017-07-27] MEDS ORDERED: PNEUMOCOCCAL VAX SCREEN BY RX. MC (14:00)
[2017-07-27] MEDS: POTASSIUM CHLORIDE 20 MEQ TABLET.ER. PO (15:05)
[2017-07-27] MEDS: LOSARTAN POTASSIUM 50 MG TABLET. PO (15:06)
[2017-07-27] MEDS: FLU VACC QS2017-18 (36MOS+)/PF 0.5 ML SYRINGE. VAX IM (15:09)
[2017-07-27] MEDS: PNEUMOC CONJ VACC 23-VALENT 0.5 ML VIAL. VAX IM (15:11)
[2017-07-27] MEDS: ISOSORBIDE MONONITRATE ER 30 MG TAB.ER.24H PO (16:21)
[2017-07-27] MEDS: amLODIPine BESYLATE 10 MG TABLET PO (16:22)
[2017-07-27 17:22] LABS: TROPONINI 0.208 ng/mL (0.000-0.055)
[2017-07-27] MEDS: ATORVASTATIN CALCIUM 40 MG TABLET. PO (20:25)
[2017-07-28 00:14] LABS: MRSA BY PCR Negative (Negative)
[2017-07-28 05:07] LABS: ANION GAP 9 (6-14); BLOOD UREA NITROGEN 19 mg/dL (8-26); CALCIUM 9.4 mg/dL (8.5-10.1); CARBON DIOXIDE 27 mmol/L (21-32); CHLORIDE 99 mmol/L (98-107); CREATININE 1.1 mg/dL (0.7-1.3); GFR 85.7; GLUCOSE 147 mg/dL (70-99); MAGNESIUM 2.1 mg/dL (1.8-2.4); POTASSIUM 4.5 mmol/L (3.5-5.1); SODIUM 135 mmol/L (136-145)
[2017-07-28] MEDS: IPRATRPIUM/ALBUTEROL 0.5/2.5MG 3 ML NEBU. NEB (08:05)
[2017-07-28] MEDS: ASPIRIN ENTERIC COATED 81 MG TABLET.DR. PO (08:36)
[2017-07-28] MEDS: amLODIPine BESYLATE 10 MG TABLET PO (08:37)
[2017-07-28] MEDS: ISOSORBIDE MONONITRATE ER 30 MG TAB.ER.24H PO ×2 (08:38→10:11)
[2017-07-28] MEDS: IBUPROFEN 600 MG TABLET. PO (08:38)
[2017-07-28] MEDS: FUROSEMIDE 40 MG/4 ML VIAL. IVP (08:39)
[2017-07-28] MEDS: LOSARTAN POTASSIUM 50 MG TABLET. PO ×2 (08:39→10:12)
[2017-07-28] MEDS: hydroCHLOROthiazide 25 MG TABLET PO (10:11)
[2017-07-29] MEDS ORDERED: LOSARTAN POTASSIUM 50 MG TABLET. PO (09:00)
[2017-07-29] MEDS ORDERED: ISOSORBIDE MONONITRATE ER 30 MG TAB.ER.24H PO (09:00)
== END 2017-07-28 14:00 | disposition home or self-care (01) | DRG 280 ==
LOC: ER 08:15 → 1 WEST ICU 10:00
DX: I21.A1 Myocardial infarction type 2 (principal); I50.33 Acute on chronic diastolic (congestive) heart failure; I67.4 Hypertensive encephalopathy; I15.8 Other secondary hypertension; I13.0 Hypertensive heart and chronic kidney disease with heart failure and stage 1 through stage 4 chronic kidney disease, or unspecified chronic kidney disease; E78.5 Hyperlipidemia, unspecified; F14.10 Cocaine abuse, uncomplicated; F17.210 Nicotine dependence, cigarettes, uncomplicated; F41.9 Anxiety disorder, unspecified; N18.9 Chronic kidney disease, unspecified; Z83.3 Family history of diabetes mellitus; Z91.14 Patient's other noncompliance with medication regimen; F12.90 Cannabis use, unspecified, uncomplicated
CPT/HCPCS: 36415; 71045; 80048; 80053; 80061; 80307; 83735; 83880; 84443; 84484; 85025; 87040; 87641; 87804; 87804-59; 90686; 90732; 93005; 93306; 94640; 94760; 96374; 96375; 99285-25; 99406; J1940; J2405; J2930; J3010; J7050; J7613; J7620; J7644

== ENCOUNTER 2017-09-24 19:59 | Inpatient (IN) | payer SELFPAY ==
[2017-09-24 21:11] LABS: ADD MAN DIFF? NO
[2017-09-24 21:15] LABS: BASO # 0.1 x10^3/uL (0.0-0.2); BASO % 1 % (0-3); EOS # 0.2 x10^3/uL (0.0-0.7); EOS % 3 % (0-3); HEMATOCRIT 41.4 % (39.0-53.0); HEMOGLOBIN 13.8 g/dL (13.0-17.5); LYMPH # 2.3 x10^3/uL (1.0-4.8); LYMPH % 36 % (24-48); MEAN CORPUSCULAR HEMOGLOBIN 32 pg (25-35); MEAN CORPUSCULAR HGB CONC 33 g/dL (31-37); MEAN CORPUSCULAR VOLUME 94 fL (79-100); MONO # 0.4 x10^3/uL (0.0-1.1); MONO % 6 % (0-9); NEUT # 3.5 x10^3uL (1.8-7.7); NEUT % 54 % (31-73); PLATELET COUNT 234 x10^3/uL (140-400); RED BLOOD COUNT 4.39 x10^6/uL (4.30-5.70); RED CELL DISTRIBUTION WIDTH 14.2 % (11.5-14.5); WHITE BLOOD COUNT 6.4 x10^3/uL (4.0-11.0)
[2017-09-24 21:27] LABS: ANION GAP 9 (6-14); BLOOD UREA NITROGEN 14 mg/dL (8-26); BUN/CREATININE RATIO 9 (6-20); CALCIUM 8.8 mg/dL (8.5-10.1); CARBON DIOXIDE 26 mmol/L (21-32); CHLORIDE 106 mmol/L (98-107); CREATININE 1.6 mg/dL (0.7-1.3); GFR 55.6; GLUCOSE 174 mg/dL (70-99); POTASSIUM 3.8 mmol/L (3.5-5.1); SODIUM 141 mmol/L (136-145)
[2017-09-24 21:33] LABS: ALBUMIN 3.1 g/dL (3.4-5.0); ALBUMIN/GLOBULIN RATIO 0.9 (1.0-1.7); ALK PHOS 72 U/L (46-116); ALT (SGPT) 39 U/L (16-63); AST (SGOT) 18 U/L (15-37); TOTAL BILIRUBIN 0.3 mg/dL (0.2-1.0); TOTAL PROTEIN 6.5 g/dL (6.4-8.2)
[2017-09-24 21:38] LABS: NT-PRO BNP 1796 pg/mL (0-124); TROPONINI 0.285 ng/mL (0.000-0.055)
[2017-09-24 21:51] LABS: BILIRUBIN,URINE NEGATIVE (NEG); CLARITY,URINE CLEAR; COLOR,URINE YELLOW; GLUCOSE,URINE NEGATIVE (NEG); NITRITE,URINE NEGATIVE (NEG); PROTEIN,URINE NEGATIVE (NEG-TRACE)
[2017-09-24 21:58] LABS: BARBITURATES NEG (NEG); BENZODIAZEPINES NEG (NEG); CANNABINOIDS POS (NEG); COCAINE POS (NEG); METHADONE NEG (NEG); OPIATES NEG (NEG); PHENCYCLIDINE NEG (NEG)
[2017-09-24 21:59] LABS: AMPHETAMINE/METHAMPHETAMINE NEG (NEG); ETHANOL, URINE NEG (NEG)
[2017-09-24 22:04] LABS: BACTERIA,URINE 0 /HPF (0-FEW); HYALINE CASTS, URINE FEW /HPF; RBC,URINE 0 /HPF (0-2); SQUAMOUS EPITHELIAL CELL,UR FEW /LPF
[2017-09-24] MEDS: hydrALAZINE 20 MG/ML VIAL. IVP (22:37)
[2017-09-24] MEDS: ASPIRIN CHEWABLE 81 MG TABLET. PO (22:38)
[2017-09-24] MEDS: FUROSEMIDE 40 MG/4 ML VIAL. IVP (22:38)
[2017-09-24] MEDS ORDERED: NITROGLYCERIN SUBLINGUAL 0.4 MG BOTTLE OF 25. SL (23:15)
[2017-09-24] MEDS ORDERED: ACETAMINOPHEN 325 MG TABLET. PO (23:15)
[2017-09-24] MEDS ORDERED: ONDANSETRON PF 4 MG/2 ML VIAL. IV (23:15)
[2017-09-24] MEDS: NITROGLYCERIN OINT 1 GM PACKET. TP (23:57)
[2017-09-25 02:18] LABS: TROPONINI 0.286 ng/mL (0.000-0.055)
[2017-09-25] MEDS ORDERED: NITROGLYCERIN PREMIX 250 ML IV (04:15)
[2017-09-25] MEDS: hydrALAZINE 20 MG/ML VIAL. IVP ×2 (04:32→10:16)
[2017-09-25 04:44] LABS: ADD MAN DIFF? NO
[2017-09-25 05:27] LABS: BASO # 0.1 x10^3/uL (0.0-0.2); BASO % 1 % (0-3); EOS # 0.2 x10^3/uL (0.0-0.7); EOS % 3 % (0-3); HEMATOCRIT 42.8 % (39.0-53.0); LYMPH # 2.5 x10^3/uL (1.0-4.8); LYMPH % 38 % (24-48); MEAN CORPUSCULAR HEMOGLOBIN 31 pg (25-35); MEAN CORPUSCULAR HGB CONC 33 g/dL (31-37); MEAN CORPUSCULAR VOLUME 94 fL (79-100); MONO # 0.5 x10^3/uL (0.0-1.1); MONO % 8 % (0-9); NEUT # 3.3 x10^3uL (1.8-7.7); NEUT % 50 % (31-73); PLATELET COUNT 232 x10^3/uL (140-400); RED BLOOD COUNT 4.58 x10^6/uL (4.30-5.70); RED CELL DISTRIBUTION WIDTH 14.1 % (11.5-14.5); WHITE BLOOD COUNT 6.6 x10^3/uL (4.0-11.0)
[2017-09-25 05:35] LABS: ANION GAP 9 (6-14); BLOOD UREA NITROGEN 15 mg/dL (8-26); CALCIUM 9.3 mg/dL (8.5-10.1); CARBON DIOXIDE 29 mmol/L (21-32); CHLORIDE 104 mmol/L (98-107); CREATININE 1.6 mg/dL (0.7-1.3); GFR 55.6; GLUCOSE 128 mg/dL (70-99); POTASSIUM 3.5 mmol/L (3.5-5.1); SODIUM 142 mmol/L (136-145)
[2017-09-25 05:43] LABS: TROPONINI 0.268 ng/mL (0.000-0.055)
[2017-09-25] MEDS: MORPHINE SULFATE 4 MG/ML DISP.SYRIN. IV ×2 (08:01→10:17)
[2017-09-25] MEDS ORDERED: MORPHINE SULFATE 4 MG/ML DISP.SYRIN. IV (11:15)
[2017-09-25] MEDS ORDERED: ONDANSETRON PF 4 MG/2 ML VIAL. IV (11:15)
[2017-09-25] MEDS ORDERED: DOCUSATE SODIUM 100 MG CAPSULE. PO (11:15)
[2017-09-25] MEDS ORDERED: hydrALAZINE 20 MG/ML VIAL. IVP (11:15)
[2017-09-25] MEDS: ALPRAZolam 0.25 MG TABLET PO ×2 (12:03→20:49)
[2017-09-25] MEDS: amLODIPine BESYLATE 10 MG TABLET PO (13:52)
[2017-09-25] MEDS: CARVEDILOL 12.5 MG TABLET. PO ×2 (13:52→18:16)
[2017-09-25] MEDS: ISOSORBIDE MONONITRATE ER 30 MG TAB.ER.24H PO (13:53)
[2017-09-25] MEDS: hydroCHLOROthiazide 25 MG TABLET PO (13:54)
[2017-09-25] MEDS: FUROSEMIDE 40 MG TABLET. PO (13:54)
[2017-09-25] MEDS: LOSARTAN POTASSIUM 50 MG TABLET. PO (13:54)
[2017-09-25] MEDS: ENOXAPARIN 40 MG/0.4 ML SYRINGE. SQ (14:49)
[2017-09-25] MEDS: ATORVASTATIN CALCIUM 20 MG TABLET PO (20:49)
[2017-09-25] MEDS: ACETAMINOPHEN 325 MG TABLET. PO (20:52)
[2017-09-26] MEDS: ALBUTEROL SULFATE 2.5 MG/3 ML NEBU. NEB (04:00)
[2017-09-26 05:31] LABS: ADD MAN DIFF? NO
[2017-09-26 05:41] LABS: BASO # 0.1 x10^3/uL (0.0-0.2); BASO % 1 % (0-3); EOS # 0.2 x10^3/uL (0.0-0.7); EOS % 5 % (0-3); HEMATOCRIT 42.2 % (39.0-53.0); HEMOGLOBIN 13.9 g/dL (13.0-17.5); LYMPH % 39 % (24-48); MEAN CORPUSCULAR HEMOGLOBIN 31 pg (25-35); MEAN CORPUSCULAR HGB CONC 33 g/dL (31-37); MEAN CORPUSCULAR VOLUME 94 fL (79-100); MONO # 0.4 x10^3/uL (0.0-1.1); MONO % 9 % (0-9); NEUT # 2.4 x10^3uL (1.8-7.7); NEUT % 47 % (31-73); PLATELET COUNT 245 x10^3/uL (140-400); WHITE BLOOD COUNT 5.1 x10^3/uL (4.0-11.0)
[2017-09-26 05:55] LABS: ANION GAP 8 (6-14); BLOOD UREA NITROGEN 17 mg/dL (8-26); CALCIUM 8.8 mg/dL (8.5-10.1); CARBON DIOXIDE 28 mmol/L (21-32); CHLORIDE 101 mmol/L (98-107); CREATININE 1.4 mg/dL (0.7-1.3); GFR 64.9; GLUCOSE 145 mg/dL (70-99); POTASSIUM 3.6 mmol/L (3.5-5.1); SODIUM 137 mmol/L (136-145)
[2017-09-26] MEDS: FUROSEMIDE 40 MG TABLET. PO (08:21)
[2017-09-26] MEDS: ALPRAZolam 0.25 MG TABLET PO ×2 (08:21→20:51)
[2017-09-26] MEDS: traMADol 50 MG TABLET PO (08:21)
[2017-09-26] MEDS: amLODIPine BESYLATE 10 MG TABLET PO (08:21)
[2017-09-26] MEDS: hydroCHLOROthiazide 25 MG TABLET PO (08:22)
[2017-09-26] MEDS: ASPIRIN ENTERIC COATED 325 MG TABLET.DR. PO (08:22)
[2017-09-26] MEDS: ISOSORBIDE MONONITRATE ER 30 MG TAB.ER.24H PO (08:22)
[2017-09-26] MEDS: CARVEDILOL 12.5 MG TABLET. PO ×2 (08:22→18:08)
[2017-09-26] MEDS: LOSARTAN POTASSIUM 50 MG TABLET. PO (08:23)
[2017-09-26 08:33] LABS: PLT ESTIMATE ADEQUATE (ADEQUATE)
[2017-09-26] MEDS: BUPIVACAINE MPF 0.25% 10 ML VIAL. IJ (11:30)
[2017-09-26] MEDS: methylPREDNISolone ACETATE 40 MG/ML VIAL. IM (11:30)
[2017-09-26] MEDS: ENOXAPARIN 40 MG/0.4 ML SYRINGE. SQ (14:27)
[2017-09-26] MEDS: ATORVASTATIN CALCIUM 20 MG TABLET PO (20:51)
[2017-09-27 05:06] LABS: ADD MAN DIFF? NO
[2017-09-27 05:27] LABS: ANION GAP 6 (6-14); BLOOD UREA NITROGEN 15 mg/dL (8-26); CALCIUM 9.5 mg/dL (8.5-10.1); CARBON DIOXIDE 31 mmol/L (21-32); CHLORIDE 99 mmol/L (98-107); CREATININE 1.3 mg/dL (0.7-1.3); GFR 70.7; GLUCOSE 156 mg/dL (70-99); POTASSIUM 4.1 mmol/L (3.5-5.1); SODIUM 136 mmol/L (136-145)
[2017-09-27 05:51] LABS: BASO % 0 % (0-3); EOS % 1 % (0-3); HEMATOCRIT 44.2 % (39.0-53.0); HEMOGLOBIN 14.6 g/dL (13.0-17.5); LYMPH # 1.4 x10^3/uL (1.0-4.8); LYMPH % 17 % (24-48); MEAN CORPUSCULAR HEMOGLOBIN 31 pg (25-35); MEAN CORPUSCULAR HGB CONC 33 g/dL (31-37); MEAN CORPUSCULAR VOLUME 93 fL (79-100); MONO # 0.4 x10^3/uL (0.0-1.1); MONO % 5 % (0-9); NEUT # 6.2 x10^3uL (1.8-7.7); NEUT % 76 % (31-73); PLATELET COUNT 273 x10^3/uL (140-400); RED BLOOD COUNT 4.74 x10^6/uL (4.30-5.70); RED CELL DISTRIBUTION WIDTH 13.9 % (11.5-14.5); WHITE BLOOD COUNT 8.2 x10^3/uL (4.0-11.0)
[2017-09-27] MEDS: ALPRAZolam 0.25 MG TABLET PO (08:19)
[2017-09-27] MEDS: ISOSORBIDE MONONITRATE ER 30 MG TAB.ER.24H PO (08:19)
[2017-09-27] MEDS: LOSARTAN POTASSIUM 50 MG TABLET. PO (08:19)
[2017-09-27] MEDS: hydroCHLOROthiazide 25 MG TABLET PO (08:20)
[2017-09-27] MEDS: CARVEDILOL 12.5 MG TABLET. PO ×2 (08:20→15:18)
[2017-09-27] MEDS: amLODIPine BESYLATE 10 MG TABLET PO (08:20)
[2017-09-27] MEDS: FUROSEMIDE 40 MG TABLET. PO (08:20)
[2017-09-27] MEDS: ASPIRIN ENTERIC COATED 325 MG TABLET.DR. PO (08:20)
[2017-09-27] MEDS: ACETAMINOPHEN 325 MG TABLET. PO (15:17)
[2017-09-27] MEDS: traMADol 50 MG TABLET PO (15:17)
[2017-09-27] MEDS: ENOXAPARIN 40 MG/0.4 ML SYRINGE. SQ (15:19)
[2017-09-27] MEDS: ATORVASTATIN CALCIUM 20 MG TABLET PO (20:47)
[2017-09-28] MEDS: ALPRAZolam 0.25 MG TABLET PO (04:47)
[2017-09-28] MEDS: ALBUTEROL SULFATE 2.5 MG/3 ML NEBU. NEB (04:51)
[2017-09-28] MEDS: FUROSEMIDE 40 MG TABLET. PO (08:33)
[2017-09-28] MEDS: CARVEDILOL 12.5 MG TABLET. PO (08:34)
[2017-09-28] MEDS: ASPIRIN ENTERIC COATED 325 MG TABLET.DR. PO (08:34)
[2017-09-28] MEDS: LOSARTAN POTASSIUM 50 MG TABLET. PO (08:34)
[2017-09-28] MEDS: hydroCHLOROthiazide 25 MG TABLET PO (08:35)
[2017-09-28] MEDS: amLODIPine BESYLATE 10 MG TABLET PO (08:35)
[2017-09-28] MEDS: ISOSORBIDE MONONITRATE ER 30 MG TAB.ER.24H PO (08:36)
== END 2017-09-28 12:15 | disposition home or self-care (01) | DRG 291 ==
LOC: ER 19:59 → 2 SOUTH 21:50
DX: I13.0 Hypertensive heart and chronic kidney disease with heart failure and stage 1 through stage 4 chronic kidney disease, or unspecified chronic kidney disease (principal); I50.33 Acute on chronic diastolic (congestive) heart failure; E66.01 Morbid (severe) obesity due to excess calories; I16.0 Hypertensive urgency; G62.9 Polyneuropathy, unspecified; E78.5 Hyperlipidemia, unspecified; Z68.38 Body mass index [BMI] 38.0-38.9, adult; F12.10 Cannabis abuse, uncomplicated; F14.10 Cocaine abuse, uncomplicated; F17.210 Nicotine dependence, cigarettes, uncomplicated; F41.1 Generalized anxiety disorder; Z91.19 Patient's noncompliance with other medical treatment and regimen; M17.0 Bilateral primary osteoarthritis of knee; N18.9 Chronic kidney disease, unspecified; Z59.0 Homelessness; Z79.82 Long term (current) use of aspirin; Z86.718 Personal history of other venous thrombosis and embolism; Z91.14 Patient's other noncompliance with medication regimen; F19.10 Other psychoactive substance abuse, uncomplicated
CPT/HCPCS: 36415; 71045; 73565; 80048; 80053; 80307; 81001; 83880; 84484; 85025; 93005; 93970; 94640; 99285; 99285-25; J0360; J1030; J1650; J1940; J2270; J3490; J7613

== ENCOUNTER 2018-03-01 06:52 | Inpatient (IN) | payer SELFPAY ==
[~2018-03-01] VITALS: Ht 189.2 cm; Wt 142.6 kg
[~2018-03-01 06:52] MED LIST changes: +ALPR0.254 PO; +AMLO10TA6 PO; +ASPI325T11 PO; +ATOR20TA58 PO; +FURO40TA4 PO; +ISOS30TA4 PO; +LOSA100T2 PO; +NAPR-514 PO; -NAPR500T3 PO; +OXYC-323 PO; +TRAM50TA PO
[2018-03-01] MEDS ORDERED: ASPIRIN 325 MG TABLET PO ONE ×2 (07:15→09:30)
--- NOTE | 2018-03-01 07:29 | EKG ---
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
--- NOTE | 2018-03-01 07:45 | RAD ---
PORTABLE CHEST 1V Clinical indications: SHORTNESS OF BREATH, PATIENT STATES INTERMITTENT FOR AWHILE COMPARISON: None available. Findings: Bilateral central interstitial lung infiltrates or pulmonary edema are seen. No pleural effusion or pneumothorax is seen. Heart size is mildly prominent some of which is due to AP magnification. The pulmonary vasculature is unremarkable. IMPRESSION: Bilateral central interstitial lung infiltrates or pulmonary edema. Electronically signed by: Chepe Kirkpatrick MD (03/01/2018 7:41 AM) [facility]
[2018-03-01 08:12] LABS: BILIRUBIN,URINE NEGATIVE (NEG); CLARITY,URINE CLEAR; COLOR,URINE YELLOW; NITRITE,URINE NEGATIVE (NEG); PROTEIN,URINE NEGATIVE (NEG-TRACE); UROBILINOGEN,URINE 0.2 mg/dL (0.2 mg/dL)
[2018-03-01 08:13] LABS: BACTERIA,URINE 0 /HPF (0-FEW); RBC,URINE OCC /HPF (0-2); SQUAMOUS EPITHELIAL CELL,UR OCC /LPF; WBC,URINE OCC /HPF (0-4)
[2018-03-01] MEDS ORDERED: FUROSEMIDE 40 MG/4 ML VIAL. IVP ONE (08:15)
[2018-03-01 08:28] LABS: BASO # 0.1 x10^3/uL (0.0-0.2); BASO % 1 % (0-3); EOS # 0.2 x10^3/uL (0.0-0.7); EOS % 4 % (0-3); HEMATOCRIT 45.2 % (39.0-53.0); HEMOGLOBIN 15.2 g/dL (13.0-17.5); LYMPH # 2.2 x10^3/uL (1.0-4.8); LYMPH % 38 % (24-48); MEAN CORPUSCULAR HEMOGLOBIN 32 pg (25-35); MEAN CORPUSCULAR HGB CONC 34 g/dL (31-37); MEAN CORPUSCULAR VOLUME 95 fL (79-100); MONO # 0.5 x10^3/uL (0.0-1.1); MONO % 8 % (0-9); NEUT # 2.8 x10^3uL (1.8-7.7); NEUT % 48 % (31-73); PLATELET COUNT 212 x10^3/uL (140-400); RED BLOOD COUNT 4.74 x10^6/uL (4.30-5.70); RED CELL DISTRIBUTION WIDTH 13.9 % (11.5-14.5); WHITE BLOOD COUNT 5.7 x10^3/uL (4.0-11.0)
--- NOTE | 2018-03-01 08:31 | PHYS DOC ---
Past Medical History Past Medical History: Hypertension Past Surgical History: Tonsillectomy Alcohol Use: None Drug Use: None Adult General Chief Complaint Chief Complaint: SHORTNESS OF BREATH HPI HPI Patient is a 52 year old male presented to the ER for evaluation of shortness of air and swelling in his leg. He has hypertension, he ran out of medication for one month and half. Patient is on Lasix and hydrochlorothiazide. He denies any chest pain. Trouble breathing started last night get worse this morning. Patient had bilateral lower extremity swelling for several weeks. He denies any headache, no fever, no cough. Review of Systems Review of Systems Constitutional: Denies fever or chills [] Eyes: Denies change in visual acuity, redness, or eye pain [] HENT: Denies nasal congestion or sore throat [] Respiratory: Denies cough or shortness of breath [] Cardiovascular: Positive for shortness of air, no chest pain. GI: Denies abdominal pain, nausea, vomiting, bloody stools or diarrhea [] : Denies dysuria or hematuria [] Musculoskeletal: Denies back pain or joint pain [] Integument: Denies rash or skin lesions [] Neurologic: Denies headache, focal weakness or sensory changes [] Endocrine: Denies polyuria or polydipsia [] All other systems were reviewed and found to be within normal limits, except as documented in this note. Current Medications Current Medications Current Medications Medications (Trade) Dose Ordered Sig/Franko Start Time Stop Time Status Last Admin Dose Admin Aspirin (Danielle Aspirin) 325 mg 1X ONCE 03/01/18 09:30 03/01/18 09:31 Furosemide (Lasix) 80 mg 1X ONCE 03/01/18 08:15 03/01/18 08:16 DC 03/01/18 08:08 80 MG Labetalol HCl (Normodyne Iv Push) 20 mg 1X ONCE 03/01/18 09:30 03/01/18 09:31 Nitroglycerin (Nitro-Bid Oint) 1 inch 1X ONCE 03/01/18 09:30 03/01/18 09:31 Allergies Allergies Allergies Coded Allergies Type Severity Reaction Last Updated Verified No Known Drug Allergies 03/10/14 No Physical Exam Physical Exam Constitutional: Well developed, well nourished, no acute distress, non-toxic appearance. [] HENT: Normocephalic, atraumatic, bilateral external ears normal, oropharynx moist, no oral exudates, nose normal. [] Eyes: PERRLA, EOMI, conjunctiva normal, no discharge. [] Neck: Normal range of motion, no tenderness, supple, no stridor. [] Cardiovascular:Heart rate regular rhythm, no murmur, bilateral pitting edema 4 plus in lower extremities. Lungs & Thorax: Bilateral breath sounds clear to auscultation [] Abdomen: Bowel sounds normal, soft, no tenderness, no masses, no pulsatile masses. [] Skin: Warm, dry, no erythema, no rash. [] Back: No tenderness, no CVA tenderness. [] Extremities: No tenderness, no cyanosis, no clubbing, ROM intact, no edema. [] Neurologic: Alert and oriented X 3, normal motor function, normal sensory function, no focal deficits noted. [] Psychologic: Affect normal, judgement normal, mood normal. [] Current Patient Data Vital Signs Vital Signs Date Time Temp Pulse Resp B/P (MAP) Pulse Ox O2 Delivery O2 Flow Rate FiO2 03/01/18 07:29 96.6 106 20 195/119 (144) 97 96.6 Lab Values Laboratory Tests Test 03/01/18 07:55 03/01/18 08:05 Urine Collection Type Void Urine Color Yellow Urine Clarity Clear Urine pH 6.0 Urine Specific [place] 1.020 Urine Protein Negative mg/dL (NEG-TRACE) Urine Glucose (UA) Negative mg/dL (NEG) Urine Ketones (Stick) Negative mg/dL (NEG) Urine Blood Negative (NEG) Urine Nitrite Negative (NEG) Urine Bilirubin Negative (NEG) Urine Urobilinogen Dipstick 0.2 mg/dL (0.2 mg/dL) Urine Leukocyte Esterase Negative (NEG) Urine RBC Occ /HPF (0-2) Urine WBC Occ /HPF (0-4) Urine Squamous Epithelial Cells Occ /LPF Urine Bacteria 0 /HPF (0-FEW) Urine Mucus Slight /LPF White Blood Count 5.7 x10^3/uL (4.0-11.0) Red Blood Count 4.74 x10^6/uL (4.30-5.70) Hemoglobin 15.2 g/dL (13.0-17.5) Hematocrit 45.2 % (39.0-53.0) Mean Corpuscular Volume 95 fL (79-100) Mean Corpuscular Hemoglobin 32 pg (25-35) Mean Corpuscular Hemoglobin Concent 34 g/dL (31-37) Red Cell Distribution Width 13.9 % (11.5-14.5) Platelet Count 212 x10^3/uL (140-400) Neutrophils (%) (Auto) 48 % (31-73) Lymphocytes (%) (Auto) 38 % (24-48) Monocytes (%) (Auto) 8 % (0-9) Eosinophils (%) (Auto) 4 % (0-3) H Basophils (%) (Auto) 1 % (0-3) Neutrophils # (Auto) 2.8 x10^3uL (1.8-7.7) Lymphocytes # (Auto) 2.2 x10^3/uL (1.0-4.8) Monocytes # (Auto) 0.5 x10^3/uL (0.0-1.1) Eosinophils # (Auto) 0.2 x10^3/uL (0.0-0.7) Basophils # (Auto) 0.1 x10^3/uL (0.0-0.2) Sodium Level 138 mmol/L (136-145) Potassium Level 4.1 mmol/L (3.5-5.1) Chloride Level 102 mmol/L (98-107) Carbon Dioxide Level 30 mmol/L (21-32) Anion Gap 6 (6-14) Blood Urea Nitrogen 11 mg/dL (8-26) Creatinine 1.1 mg/dL (0.7-1.3) Estimated GFR (Cockcroft-Gault) 85.7 BUN/Creatinine Ratio 10 (6-20) Glucose Level 129 mg/dL (70-99) H Calcium Level 8.8 mg/dL (8.5-10.1) Magnesium Level 2.0 mg/dL (1.8-2.4) Total Bilirubin 0.2 mg/dL (0.2-1.0) Aspartate Amino Transferase (AST) 22 U/L (15-37) Alanine Aminotransferase (ALT) 33 U/L (16-63) Alkaline Phosphatase 66 U/L (46-116) Creatine Kinase 241 U/L (39-308) Troponin I Quantitative 0.275 ng/mL (0.000-0.055) LB-Qte-R-Type Natriuretic Peptide 1431 pg/mL (0-124) H Total Protein 7.3 g/dL (6.4-8.2) Albumin 3.6 g/dL (3.4-5.0) Albumin/Globulin Ratio 1.0 (1.0-1.7) Lipase 57 U/L (73-393) L Thyroid Stimulating Hormone (TSH) 1.052 uIU/mL (0.358-3.74) Laboratory Tests 03/01/18 08:05 Laboratory Tests 03/01/18 08:05 EKG EKG EKG READ BY THIS PROVIDER AT 7:15 AM, RATE OF 104, SINUS TACHYCARDIA, NO STEMI[ ] Radiology/Procedures Radiology/Procedures [][facility] [address] [place] [address] IMAGING REPORT Signed PATIENT: NOA [place] ACCOUNT: [id number] : 1965 LOCATION: ER AGE: 52 SEX: M EXAM STATUS: REG ER ORD. PHYSICIAN: MEHNAZ CHAUHAN DO REASON: soa PROCEDURE: PORTABLE CHEST 1V PORTABLE CHEST 1V Clinical indications: SHORTNESS OF BREATH, PATIENT STATES INTERMITTENT FOR AWHILE COMPARISON: None available. Findings: Bilateral central interstitial lung infiltrates or pulmonary edema are seen. No pleural effusion or pneumothorax is seen. Heart size is mildly prominent some of which is due to AP magnification. The pulmonary vasculature is unremarkable. IMPRESSION: Bilateral central interstitial lung infiltrates or pulmonary edema. Electronically signed by: Nickolas Kirkpatrick MD (03/01/2018 7:41 AM) [facility] DICTATED and SIGNED BY: NICKOLAS KIRKPATRICK MD DATE: 03/01/18 0739 Course & Med Decision Making Course & Med Decision Making Pertinent Labs and Imaging studies reviewed. (See chart for details) Patient was given 80 mg lasix iv, he urinated about 1200 ml of urine output. His blood pressure was elevated, 20 mg labetalol was ordered. will admit him to the hospital, consult cardiology Dragon Disclaimer Dragon Disclaimer This electronic medical record was generated, in whole or in part, using a voice recognition dictation system. Departure Departure Impression: Primary Impression: Acute pulmonary edema Additional Impression: Hypertension Disposition: 09 ADMITTED INPATIENT Admitting Physician: Brooklyn Juarez Condition: STABLE Referrals: NO PCP (PCP) Problem Qualifiers MEHNAZ CHAUHAN DO Mar 01, 2018 08:31
[2018-03-01 08:39] LABS: CALCIUM 8.8 mg/dL (8.5-10.1); CREATININE 1.1 mg/dL (0.7-1.3); GFR 85.7; POTASSIUM 4.1 mmol/L (3.5-5.1)
[2018-03-01 08:45] LABS: ALBUMIN 3.6 g/dL (3.4-5.0); TOTAL BILIRUBIN 0.2 mg/dL (0.2-1.0); TOTAL PROTEIN 7.3 g/dL (6.4-8.2)
[2018-03-01 09:12] LABS: PROTHROMBIN TIME PATIENT 12.6 SEC (11.7-14.0)
[2018-03-01] MEDS ORDERED: NITROGLYCERIN OINT 1 GM PACKET. TP ONE (09:30)
[2018-03-01] MEDS ORDERED: LABETALOL 20 MG/4 ML DISP.SYRIN. IVP ONE (09:30)
[2018-03-01] MEDS ORDERED: ONDANSETRON PF 4 MG/2 ML VIAL. IV PRN (09:45)
[2018-03-01 11:30] VITALS: BP 145/98
--- NOTE | 2018-03-01 11:42 | PDOC2 ---
SHARON MONTEJO MESS COOK 03/01/18 1141: CARDIAC CONSULT DATE OF CONSULT Date of Consult DATE: 03/01/18 TIME: 11:39 REASON FOR CONSULT Reason for Consult: elevated troponin REFERRING PHYSICIAN Referring Physician: Grabiel SOURCE Source: Chart review HISTORY OF PRESENT ILLNESS HISTORY OF PRESENT ILLNESS 52 year old male admitted through the ER with dyspnea and a "tender chest." Has not taken his meds for at least 6 weeks and reports PND, orthopnea, lower extremity edema and anxiety. Initial troponin elevated @ 0.275 without EKG changes. BP of 195/119 POA. Reason for Visit: NSTEMI PAST MEDICAL HISTORY Cardiovascular: HTN, Hyperlipidemia Psych: Anxiety Renal/: Chronic renal insuff PAST SURGICAL HISTORY Past Surgical History: Tonsillectomy FAMILY HISTORY Family History: Family History Unknown SOCIAL HISTORY Smoke: <1 pack per day ALCOHOL: none Drugs: Cocaine (admits to use at least twice monthly), Marijuana CURRENT MEDICATIONS CURRENT MEDICATIONS Current Medications Medications (Trade) Dose Ordered Sig/Franko Route PRN Reason Start Time Stop Time Status Last Admin Dose Admin Aspirin (Danielle Aspirin) 325 mg 1X ONCE PO 03/01/18 07:15 03/01/18 07:35 DC 03/01/18 08:01 Furosemide (Lasix) 80 mg 1X ONCE IVP 03/01/18 08:15 03/01/18 08:16 DC 03/01/18 08:08 Nitroglycerin (Nitro-Bid Oint) 1 inch 1X ONCE TP 03/01/18 09:30 03/01/18 09:31 DC 03/01/18 09:55 Labetalol HCl (Normodyne Iv Push) 20 mg 1X ONCE IVP 03/01/18 09:30 03/01/18 09:31 DC 03/01/18 09:56 ALLERGIES ALLERGIES: Coded Allergies: No Known Drug Allergies (Unverified , 03/10/14) ROS Review of System 10 point review with pertinent positives in HPI PHYSICAL EXAM General: Alert, Oriented X3, Cooperative, No acute distress HEENT: Atraumatic, Mucous membr. moist/pink Lungs: Other (posterior basilar crackles) Heart: Normal S1, Normal S2, No murmurs Abdomen: Soft Extremities: Other (1+ bilateral lower extremity edema) Neuro: Normal speech Psych/Mental Status: Mental status NL, Mood NL MUSCULOSKELETAL: No deformity VITALS VITALS Vital Signs Date Time Temp Pulse Resp B/P (MAP) Pulse Ox O2 Delivery O2 Flow Rate FiO2 03/01/18 10:30 88 20 143/112 (122) 96 Room Air 03/01/18 07:29 96.6 96.6 LABS Lab: Laboratory Tests Test 03/01/18 07:55 03/01/18 08:05 03/01/18 08:56 Urine Collection Type Void Urine Color Yellow Urine Clarity Clear Urine pH 6.0 Urine Specific [place] 1.020 Urine Protein Negative mg/dL (NEG-TRACE) Urine Glucose (UA) Negative mg/dL (NEG) Urine Ketones (Stick) Negative mg/dL (NEG) Urine Blood Negative (NEG) Urine Nitrite Negative (NEG) Urine Bilirubin Negative (NEG) Urine Urobilinogen Dipstick 0.2 mg/dL (0.2 mg/dL) Urine Leukocyte Esterase Negative (NEG) Urine RBC Occ /HPF (0-2) Urine WBC Occ /HPF (0-4) Urine Squamous Epithelial Cells Occ /LPF Urine Bacteria 0 /HPF (0-FEW) Urine Mucus Slight /LPF White Blood Count 5.7 x10^3/uL (4.0-11.0) Red Blood Count 4.74 x10^6/uL (4.30-5.70) Hemoglobin 15.2 g/dL (13.0-17.5) Hematocrit 45.2 % (39.0-53.0) Mean Corpuscular Volume 95 fL (79-100) Mean Corpuscular Hemoglobin 32 pg (25-35) Mean Corpuscular Hemoglobin Concent 34 g/dL (31-37) Red Cell Distribution Width 13.9 % (11.5-14.5) Platelet Count 212 x10^3/uL (140-400) Neutrophils (%) (Auto) 48 % (31-73) Lymphocytes (%) (Auto) 38 % (24-48) Monocytes (%) (Auto) 8 % (0-9) Eosinophils (%) (Auto) 4 % (0-3) Basophils (%) (Auto) 1 % (0-3) Neutrophils # (Auto) 2.8 x10^3uL (1.8-7.7) Lymphocytes # (Auto) 2.2 x10^3/uL (1.0-4.8) Monocytes # (Auto) 0.5 x10^3/uL (0.0-1.1) Eosinophils # (Auto) 0.2 x10^3/uL (0.0-0.7) Basophils # (Auto) 0.1 x10^3/uL (0.0-0.2) Sodium Level 138 mmol/L (136-145) Potassium Level 4.1 mmol/L (3.5-5.1) Chloride Level 102 mmol/L (98-107) Carbon Dioxide Level 30 mmol/L (21-32) Anion Gap 6 (6-14) Blood Urea Nitrogen 11 mg/dL (8-26) Creatinine 1.1 mg/dL (0.7-1.3) Estimated GFR (Cockcroft-Gault) 85.7 BUN/Creatinine Ratio 10 (6-20) Glucose Level 129 mg/dL (70-99) Calcium Level 8.8 mg/dL (8.5-10.1) Magnesium Level 2.0 mg/dL (1.8-2.4) Total Bilirubin 0.2 mg/dL (0.2-1.0) Aspartate Amino Transf (AST/SGOT) 22 U/L (15-37) Alanine Aminotransferase (ALT/SGPT) 33 U/L (16-63) Alkaline Phosphatase 66 U/L (46-116) Creatine Kinase 241 U/L (39-308) Troponin I Quantitative 0.275 ng/mL (0.000-0.055) [id number] Natriuretic Peptide 1431 pg/mL (0-124) Total Protein 7.3 g/dL (6.4-8.2) Albumin 3.6 g/dL (3.4-5.0) Albumin/Globulin Ratio 1.0 (1.0-1.7) Lipase 57 U/L (73-393) Thyroid Stimulating Hormone (TSH) 1.052 uIU/mL (0.358-3.74) Prothrombin Time 12.6 SEC (11.7-14.0) Prothromb Time International Ratio 1.0 (0.8-1.1) IMAGES IMAGES CXR: Findings: Bilateral central interstitial lung infiltrates or pulmonary edema are seen. No pleural effusion or pneumothorax is seen. Heart size is mildly prominent some of which is due to AP magnification. The pulmonary vasculature is unremarkable. IMPRESSION: Bilateral central interstitial lung infiltrates or pulmonary edema. EKG EKG no acute changes ECHOCARDIOGRAM ECHOCARDIOGRAM 07/2017: TTE: The left ventricle is normal size. The left ventricular systolic function is normal and the ejection fraction is within normal range. The Ejection Fraction is 65-70%. There is mild to moderate concentric left ventricular hypertrophy. There is a possible very small PFO present. There is no significant aortic valvular stenosis. Doppler and Color Flow revealed no significant aortic regurgitation. Doppler and Color Flow revealed trace to mild mitral regurgitation. Doppler and Color Flow revealed mild tricuspid regurgitation. HEART CATH HEART CATH 1. acute on chronic diastolic HF --etiology due to medical non-adherence -- no medications for at least 6 weeks --LVEF 65% by TTE 07/2017 --control BP; given Lasix in ER; start BID lasix tomorrow 2. NSTEMI --continue serial markers --may be demand mediated --MPI tomorrow if BP controlled and can lie flat 3. hypertensive urgency --resume what should be his home meds 4. substance abuse --check UDS --h/o cocaine, THC, tobacco 5. anxiety --defer to MPI ALMA STOUT MD 03/01/18 1647: CARDIAC CONSULT ASSESSMENT/PLAN ASSESSMENT/PLAN Patient seen and examined. Agree with FITNESS PROFESSIONAL's assessment and plan. Acute on chronic diastolic heart failure and accelerated hypertension most probably secondary to noncompliance with medications Symptoms improving with diuretics Resume home antihypertensives and titrate for better blood pressure control Recent 2-D echo showed normal LV systolic function Troponin elevation probably demand ischemia/non-STEMI type II Plan for Lexiscan nuclear stress test to rule out ischemia Thank you for your consultation SHARON MONTEJO APRN Mar 01, 2018 11:41 ALMA STOUT MD Mar 01, 2018 16:47
--- NOTE | 2018-03-01 14:51 | HP ---
ADMIT DATE: 03/01/2018 CHIEF COMPLAINT: Shortness of breath and edema. HISTORY OF PRESENT ILLNESS: The patient is a pleasant 52-year-old male who presented to ER with the above chief complaints. Basically, he has been short of breath and his legs have been swelling. He ran out his medication a month ago, so his blood pressure is in the 250 range here in the ER, systolically. He appears to be in heart failure, has a vascular congestion and elevated BNP of 1400. His troponin is also high at 0.275. I discussed the case with ER physician. We are going to admit the patient and diurese him and consult Cardiology. PAST MEDICAL HISTORY: Noncompliance, hypertension, CHF, tonsillectomy. ALLERGIES: None. FAMILY HISTORY: Hypertension. SOCIAL HISTORY: He does not drink, smoke or take drugs. MEDICATIONS: Reviewed, please refer to the MRAD. REVIEW OF SYSTEMS: GENERAL: No history of weight change, weakness or fevers. SKIN: No bruising, hair changes or rashes. EYES: No blurred, double or loss of vision. NOSE AND THROAT: No history of nosebleeds, hoarseness or sore throat. HEART: No history of palpitations, chest pain or shortness of breath on exertion. LUNGS: He complains of shortness of breath. GASTROINTESTINAL: Denies changes in appetite, nausea, vomiting, diarrhea or constipation. GENITOURINARY: No history of frequency, urgency, hesitancy or nocturia. NEUROLOGIC: Denies history of numbness, tingling, tremor or weakness. PSYCHIATRIC: No history of panic, anxiety or depression. ENDOCRINE: No history of heat or cold intolerance, polyuria or polydipsia. EXTREMITIES: He complains of edema. PHYSICAL EXAMINATION: VITAL SIGNS: Temperature afebrile, pulse 100, respirations 18, blood pressure 144/91. GENERAL: He is alert, cooperative. HEART: Normal S1, S2 with a soft S3. LUNGS: Bibasilar crackles and diminished. ABDOMEN: Soft. EXTREMITIES: 2+ edema. SKIN: No rashes. ENDOCRINE: No thyromegaly. LYMPHATICS: No cervical nodes. HEMATOPOIETIC: No bruising. LABORATORY DATA: Hematology is normal. BNP 1431. ASSESSMENT AND PLAN: Acute on chronic systolic and diastolic heart failure with a possible myocardial infarction (his troponin is positive at 0.275). The patient has been admitted. We will give him IV Lasix. Consult Cardiology, cardiac monitoring, serial enzymes, serial EKGs, home meds. PROGNOSIS: Guarded. ISMAEL KAPLAN DO DR: SARAH BETH/giles JOB#: [id number] / [id number]
[2018-03-01 15:00] VITALS: BP 134/76
[2018-03-01] MEDS ORDERED: CYCLOBENZAPRINE 10 MG TABLET. PO PRN (15:00)
[2018-03-01] MEDS ORDERED: INFLUENZA VAX SCREEN BY RX. MC ONE (16:00)
[2018-03-01] MEDS: hydroCHLOROthiazide 25 MG TABLET PO SCH (16:41)
[2018-03-01] MEDS: LOSARTAN POTASSIUM 50 MG TABLET. PO SCH (16:41)
[2018-03-01] MEDS: ISOSORBIDE MONONITRATE ER 30 MG TAB.ER.24H PO SCH (16:42)
[2018-03-01] MEDS: ATORVASTATIN CALCIUM 20 MG TABLET PO SCH (16:42)
[2018-03-01] MEDS: amLODIPine BESYLATE 10 MG TABLET PO SCH (16:43)
[2018-03-01] MEDS: CARVEDILOL 12.5 MG TABLET. PO SCH (16:43)
[2018-03-01 18:45] LABS: BARBITURATES NEG (NEG); BENZODIAZEPINES NEG (NEG); CANNABINOIDS NEG (NEG); COCAINE POS (NEG); METHADONE NEG (NEG); OPIATES NEG (NEG); PHENCYCLIDINE NEG (NEG)
[2018-03-01 18:46] LABS: AMPHETAMINE/METHAMPHETAMINE NEG (NEG)
[2018-03-01 19:00] VITALS: BP 139/98
[2018-03-01] MEDS: ALPRAZolam 0.25 MG TABLET PO PRN (19:59)
[2018-03-01 23:00] VITALS: BP 143/95
[2018-03-02 03:00] VITALS: BP 144/99
[2018-03-02] MEDS: traMADol 50 MG TABLET PO PRN ×2 (03:08→11:18)
[2018-03-02 07:00] VITALS: BP 140/92
[2018-03-02] MEDS ORDERED: FUROSEMIDE 40 MG TABLET. PO SCH (09:00)
[2018-03-02] MEDS ORDERED: FUROSEMIDE 40 MG/4 ML VIAL. IVP SCH (09:00)
[2018-03-02] MEDS ORDERED: REGADENOSON 0.4 MG/5 ML DISP.SYRIN. IV ONE (09:45)
--- NOTE | 2018-03-02 10:16 | PDOC ---
PROGRESS NOTES History of Present Illness History of Present Illness ASSESSMENT AND PLAN: Acute on chronic systolic and diastolic heart failure possible myocardial infarction troponin is positive 0.275 admitted. plan MPI TODAY IV Lasix. Cardiology,following cardiac monitoring, serial enzymes, serial EKGs, home meds. Vitals Vitals Vital Signs Date Time Temp Pulse Resp B/P (MAP) Pulse Ox O2 Delivery O2 Flow Rate FiO2 03/02/18 07:00 97.5 96 18 140/92 (108) 94 Room Air 97.5 Physical Exam General: Alert, Oriented X3, Cooperative, No acute distress Heart: Regular rate, Normal S1, Normal S2, No murmurs Abdomen: Soft Extremities: No cyanosis, Other (1+ bilateral lower extremity edema) Skin: No breakdown Labs LABS Laboratory Tests Test 03/01/18 12:09 03/01/18 16:30 Troponin I Quantitative 0.264 ng/mL (0.000-0.055) Urine Opiates Screen Neg (NEG) Urine Methadone Screen Neg (NEG) Urine Barbiturates Neg (NEG) Urine Phencyclidine Screen Neg (NEG) Urine Amphetamine/Methamphetamine Neg (NEG) Urine Benzodiazepines Screen Neg (NEG) Urine Cocaine Screen Pos (NEG) Urine Cannabinoids Screen Neg (NEG) Urine Ethyl Alcohol Neg (NEG) Assessment and Plan Assessmemt and Plan Problems Medical Problems: (1) Acute pulmonary edema Status: Acute (2) Hypertension Status: Acute Comment Review of Relevant I have reviewed the following items torres (where applicable) has been applied. Labs Laboratory Tests Test 03/01/18 07:55 03/01/18 08:05 03/01/18 08:56 03/01/18 12:09 Urine Collection Type Void Urine Color Yellow Urine Clarity Clear Urine pH 6.0 Urine Specific [place] 1.020 Urine Protein Negative mg/dL (NEG-TRACE) Urine Glucose (UA) Negative mg/dL (NEG) Urine Ketones (Stick) Negative mg/dL (NEG) Urine Blood Negative (NEG) Urine Nitrite Negative (NEG) Urine Bilirubin Negative (NEG) Urine Urobilinogen Dipstick 0.2 mg/dL (0.2 mg/dL) Urine Leukocyte Esterase Negative (NEG) Urine RBC Occ /HPF (0-2) Urine WBC Occ /HPF (0-4) Urine Squamous Epithelial Cells Occ /LPF Urine Bacteria 0 /HPF (0-FEW) Urine Mucus Slight /LPF White Blood Count 5.7 x10^3/uL (4.0-11.0) Red Blood Count 4.74 x10^6/uL (4.30-5.70) Hemoglobin 15.2 g/dL (13.0-17.5) Hematocrit 45.2 % (39.0-53.0) Mean Corpuscular Volume 95 fL (79-100) Mean Corpuscular Hemoglobin 32 pg (25-35) Mean Corpuscular Hemoglobin Concent 34 g/dL (31-37) Red Cell Distribution Width 13.9 % (11.5-14.5) Platelet Count 212 x10^3/uL (140-400) Neutrophils (%) (Auto) 48 % (31-73) Lymphocytes (%) (Auto) 38 % (24-48) Monocytes (%) (Auto) 8 % (0-9) Eosinophils (%) (Auto) 4 % (0-3) Basophils (%) (Auto) 1 % (0-3) Neutrophils # (Auto) 2.8 x10^3uL (1.8-7.7) Lymphocytes # (Auto) 2.2 x10^3/uL (1.0-4.8) Monocytes # (Auto) 0.5 x10^3/uL (0.0-1.1) Eosinophils # (Auto) 0.2 x10^3/uL (0.0-0.7) Basophils # (Auto) 0.1 x10^3/uL (0.0-0.2) Sodium Level 138 mmol/L (136-145) Potassium Level 4.1 mmol/L (3.5-5.1) Chloride Level 102 mmol/L (98-107) Carbon Dioxide Level 30 mmol/L (21-32) Anion Gap 6 (6-14) Blood Urea Nitrogen 11 mg/dL (8-26) Creatinine 1.1 mg/dL (0.7-1.3) Estimated GFR (Cockcroft-Gault) 85.7 BUN/Creatinine Ratio 10 (6-20) Glucose Level 129 mg/dL (70-99) Calcium Level 8.8 mg/dL (8.5-10.1) Magnesium Level 2.0 mg/dL (1.8-2.4) Total Bilirubin 0.2 mg/dL (0.2-1.0) Aspartate Amino Transf (AST/SGOT) 22 U/L (15-37) Alanine Aminotransferase (ALT/SGPT) 33 U/L (16-63) Alkaline Phosphatase 66 U/L (46-116) Creatine Kinase 241 U/L (39-308) Troponin I Quantitative 0.275 ng/mL (0.000-0.055) 0.264 ng/mL (0.000-0.055) [id number]-Type Natriuretic Peptide 1431 pg/mL (0-124) Total Protein 7.3 g/dL (6.4-8.2) Albumin 3.6 g/dL (3.4-5.0) Albumin/Globulin Ratio 1.0 (1.0-1.7) Lipase 57 U/L (73-393) Thyroid Stimulating Hormone (TSH) 1.052 uIU/mL (0.358-3.74) Prothrombin Time 12.6 SEC (11.7-14.0) Prothromb Time International Ratio 1.0 (0.8-1.1) Test 03/01/18 16:30 Urine Opiates Screen Neg (NEG) Urine Methadone Screen Neg (NEG) Urine Barbiturates Neg (NEG) Urine Phencyclidine Screen Neg (NEG) Urine Amphetamine/Methamphetamine Neg (NEG) Urine Benzodiazepines Screen Neg (NEG) Urine Cocaine Screen Pos (NEG) Urine Cannabinoids Screen Neg (NEG) Urine Ethyl Alcohol Neg (NEG) Laboratory Tests Test 03/01/18 12:09 03/01/18 16:30 Troponin I Quantitative 0.264 ng/mL (0.000-0.055) Urine Opiates Screen Neg (NEG) Urine Methadone Screen Neg (NEG) Urine Barbiturates Neg (NEG) Urine Phencyclidine Screen Neg (NEG) Urine Amphetamine/Methamphetamine Neg (NEG) Urine Benzodiazepines Screen Neg (NEG) Urine Cocaine Screen Pos (NEG) Urine Cannabinoids Screen Neg (NEG) Urine Ethyl Alcohol Neg (NEG) Medications Current Medications Aspirin (Danielle Aspirin) 325 mg 1X ONCE PO Last administered on 03/01/18at 08:01 ; Start 03/01/18 at 07:15; Stop 03/01/18 at 07:35; Status DC Furosemide (Lasix) 80 mg 1X ONCE IVP Last administered on 03/01/18at 08:08; Start 03/01/18 at 08:15; Stop 03/01/18 at 08:16; Status DC Nitroglycerin (Nitro-Bid Oint) 1 inch 1X ONCE TP Last administered on at 09:55; Start 03/01/18 at 09:30; Stop 03/01/18 at 09:31; Status DC Aspirin (Danielle Aspirin) 325 mg 1X ONCE PO ; Start 03/01/18 at 09:30; Stop 03/01 at 09:31; Status DC Labetalol HCl (Normodyne Iv Push) 20 mg 1X ONCE IVP Last administered on at 09:56; Start 03/01/18 at 09:30; Stop 03/01/18 at 09:31; Status DC Ondansetron HCl (Zofran) 4 mg PRN Q8HRS PRN IV NAUSEA/VOMITING; Start 03/01/18 at 09:45; Stop 03/02/18 at 09:44; Status DC Furosemide (Lasix) 40 mg BID92 IVP ; Start 03/02/18 at 09:00 Alprazolam (Xanax) 0.25 mg PRN Q8HRS PRN PO ANXIETY / AGITATION Last administered on 03/01/18at 19:59; Start 03/01/18 at 15:00 Amlodipine Besylate (Norvasc) 10 mg DAILY PO Last administered on 03/01/18at 16: 43; Start 03/01/18 at 15:30 Aspirin (Ecotrin) 325 mg DAILY PO ; Start 03/02/18 at 09:00 Atorvastatin Calcium (Lipitor) 20 mg DAILY PO Last administered on 03/01/18at 16 :42; Start 03/01/18 at 15:30 Carvedilol (Coreg) 12.5 mg BIDWMEALS PO Last administered on 03/01/18at 16:43; Start 03/01/18 at 17:00 Cyclobenzaprine HCl (Flexeril) 10 mg PRN TID PRN PO MUSCLE PAIN; Start at 15:00 Furosemide (Lasix) 40 mg DAILY PO ; Start 03/02/18 at 09:00; Status UNV Hydrochlorothiazide (Hydrodiuril) 25 mg DAILY PO Last administered on at 16:41; Start 03/01/18 at 15:30 Isosorbide Mononitrate (Imdur) 60 mg DAILY PO Last administered on 03/01/18at 16 :42; Start 03/01/18 at 15:30 Tramadol HCl (Ultram) 50 mg PRN Q6HRS PRN PO PAIN Last administered on at 03:08; Start 03/01/18 at 15:00 Losartan Potassium (Cozaar) 100 mg DAILY PO Last administered on 03/01/18at 16: 41; Start 03/01/18 at 15:30 Info (Do NOT chart on this placeholder) 1 each 1X ONCE MC ; Start 03/01/18 at 16:00; Stop 03/01/18 at 16:01; Status UNV Influenza Virus Vaccine (Afluria Trivalent [id number] Syringe) 0.5 ml ONCE ONCE VAX IM Last administered on 03/01/18at 17:10; Start 03/01/18 at 18:00; Stop at 18:01; Status DC Regadenoson (Lexiscan) 0.4 mg 1X ONCE IV ; Start 03/02/18 at 09:45; Stop at 09:46; Status DC Active Scripts Active Furosemide 40 Mg Tablet 40 Mg PO DAILY 30 Days Alprazolam 0.25 Mg Tablet 0.25 Mg PO PRN Q8HRS PRN 30 Days Tramadol Hcl 50 Mg Tablet 50 Mg PO PRN Q6HRS PRN 30 Days Isosorbide Mononitrate Er (Isosorbide Mononitrate) 30 Mg Tab.er.24h 60 Mg PO DAILY Aspirin Ec (Aspirin) 325 Mg Tablet. 1 Tab PO DAILY Cozaar (Losartan Potassium) 100 Mg Tablet 100 Mg PO DAILY Atorvastatin Calcium 20 Mg Tablet 1 Tab PO DAILY Amlodipine Besylate 10 Mg Tablet 10 Mg PO DAILY Hydrochlorothiazide Tablet (Hydrochlorothiazide) 25 Mg Tablet 25 Mg PO DAILY Carvedilol 12.5 Mg Tablet 12.5 Mg PO BIDWMEALS Cyclobenzaprine Hcl 10 Mg Tablet 1 Tab PO TID PRN Vitals/I & O Vital Sign - Last 24 Hours 03/01/18 03/01/18 03/01/18 03/01/18 10:30 11:30 12:00 15:00 Temp 97.9 97.9 97.9 97.9 Pulse 88 101 96 Resp 20 18 20 B/P (MAP) 143/112 (122) 145/98 (114) 134/76 (95) Pulse Ox 96 98 95 O2 Delivery Room Air Room Air Room Air Room Air 03/01/18 03/01/18 03/01/18 03/01/18 16:41 16:42 16:43 16:43 Pulse 96 96 96 96 B/P (MAP) 134/76 134/76 134/76 134/76 03/01/18 03/01/18 03/01/18 03/02/18 19:00 20:00 23:00 03:00 Temp 97.9 97.5 97.9 97.9 97.5 97.9 Pulse 96 93 80 Resp 18 18 18 B/P (MAP) 139/98 (112) 143/95 (111) 144/99 (114) Pulse Ox 96 95 92 O2 Delivery Room Air Room Air Room Air Room Air 03/02/18 03/02/18 03/02/18 03:08 04:08 07:00 Temp 97.5 97.5 Pulse 96 Resp 18 B/P (MAP) 140/92 (108) Pulse Ox 92 94 O2 Delivery Room Air Room Air Room Air Intake and Output 03/01/18 03/01/18 03/02/18 15:00 23:00 07:00 Intake Total 180 ml 480 ml Output Total 150 ml Balance 180 ml 330 ml KEITH PARK MD Mar 02, 2018 10:16
[2018-03-02] MEDS: CARVEDILOL 12.5 MG TABLET. PO SCH ×2 (10:53→17:06)
[2018-03-02] MEDS: LOSARTAN POTASSIUM 50 MG TABLET. PO SCH (10:55)
[2018-03-02] MEDS: ASPIRIN ENTERIC COATED 325 MG TABLET.DR. PO SCH (10:58)
[2018-03-02] MEDS: hydroCHLOROthiazide 25 MG TABLET PO SCH (10:58)
[2018-03-02] MEDS: ISOSORBIDE MONONITRATE ER 30 MG TAB.ER.24H PO SCH (10:59)
[2018-03-02 11:00] VITALS: BP 174/93
[2018-03-02] MEDS: amLODIPine BESYLATE 10 MG TABLET PO SCH (11:00)
[2018-03-02] MEDS: ATORVASTATIN CALCIUM 20 MG TABLET PO SCH (11:00)
[2018-03-02] MEDS: ALPRAZolam 0.25 MG TABLET PO PRN (11:18)
--- NOTE | 2018-03-02 11:44 | PDOC ---
RADHA MCGINNIS CHIEF MINISTER 03/02/18 1144: CARDIO Progress Notes Date and Time Date of Service 03/02/2018 Time of Evaluation 1010 Subjective Subjective: No Chest Pain, No shortness of breath, No Palpitations Vitals Vitals Vital Signs Date Time Temp Pulse Resp B/P (MAP) Pulse Ox O2 Delivery O2 Flow Rate FiO2 03/02/18 11:18 20 94 Room Air 03/02/18 11:00 96 140/92 03/02/18 07:00 97.5 97.5 Weight Weight [ ] Input and Output Intake and Output Intake and Output 03/02/18 07:00 Intake Total 660 ml Output Total 150 ml Balance 510 ml Intake Oral 660 ml Output Urine Total 150 ml # Voids 3 # Bowel Movements 1 Laboratory Labs Laboratory Tests Test 03/01/18 12:09 03/01/18 16:30 Troponin I Quantitative 0.264 ng/mL (0.000-0.055) Urine Opiates Screen Neg (NEG) Urine Methadone Screen Neg (NEG) Urine Barbiturates Neg (NEG) Urine Phencyclidine Screen Neg (NEG) Urine Amphetamine/Methamphetamine Neg (NEG) Urine Benzodiazepines Screen Neg (NEG) Urine Cocaine Screen Pos (NEG) Urine Cannabinoids Screen Neg (NEG) Urine Ethyl Alcohol Neg (NEG) Physical Exam HEENT: Neck Supple W Full Motion Chest: Symmetric LUNGS: Clear to Auscultation Heart: S1S2, RRR (SR ) Abdomen: Soft N/T, Other (obese) Extremities: No Edema, No Calf Tenderness Neurology: alert, oriented, follow commands Assessment Assessment 1. Acute on chronic diastolic CHF: due to uncontrolled HTN, noncompliance and cocaine. Now compensated 2. Accelerated HTN: better 3. Polysubstance abuse: THC, cocaine 4. NSTEMI: likely demand mediated type 2 due to above. 5. Tobaccoism 6. Morbid obesity Recommendations 1. MPI today 2. Lasix therapy. ASA/statin 3. Continue current BP regimen 4. Lifestyle modifications and discussed med compliance. ALMA STOUT MD 03/02/18 1722: CARDIO Progress Notes Assessment Assessment Patient seen and examined. Agree with TRAFFIC CONTROL SPECIALIST's assessment and plan. Acute on chronic diastolic heart failure better compensated with diuresis Blood pressure better controlled since admission Lexiscan nuclear stress test (2 day protocol) pending RADHA MCGINNIS APRN Mar 02, 2018 11:44 ALMA STOUT MD Mar 02, 2018 17:22
[2018-03-02 15:00] VITALS: BP 131/78
[2018-03-02] MEDS: FUROSEMIDE 40 MG TABLET. PO SCH (17:06)
[2018-03-02 19:00] VITALS: BP 124/80
[2018-03-02 23:00] VITALS: BP 150/93
[2018-03-03 03:00] VITALS: BP 113/74
[2018-03-03 05:31] LABS: CALCIUM 9.7 mg/dL (8.5-10.1); CREATININE 1.5 mg/dL (0.7-1.3); GFR 59.9; POTASSIUM 3.5 mmol/L (3.5-5.1)
[2018-03-03 07:00] VITALS: BP 131/104
[2018-03-03] MEDS: FUROSEMIDE 40 MG TABLET. PO SCH ×2 (09:05→16:59)
[2018-03-03] MEDS: ASPIRIN ENTERIC COATED 325 MG TABLET.DR. PO SCH (09:06)
[2018-03-03] MEDS: ATORVASTATIN CALCIUM 20 MG TABLET PO SCH (09:06)
[2018-03-03] MEDS: ISOSORBIDE MONONITRATE ER 30 MG TAB.ER.24H PO SCH (09:06)
[2018-03-03] MEDS: LOSARTAN POTASSIUM 50 MG TABLET. PO SCH (09:07)
[2018-03-03] MEDS: amLODIPine BESYLATE 10 MG TABLET PO SCH (09:07)
[2018-03-03] MEDS: hydroCHLOROthiazide 25 MG TABLET PO SCH (09:07)
[2018-03-03] MEDS: CARVEDILOL 12.5 MG TABLET. PO SCH ×2 (09:08→16:59)
--- NOTE | 2018-03-03 10:50 | PDOC ---
PROGRESS NOTES History of Present Illness History of Present Illness ASSESSMENT AND PLAN: Acute on chronic systolic and diastolic heart failure possible myocardial infarction troponin is positive 0.275 admitted. plan MPI 03/02 IV Lasix. Cardiology,following cardiac monitoring, serial enzymes, serial EKGs, home meds. d/c today Vitals Vitals Vital Signs Date Time Temp Pulse Resp B/P (MAP) Pulse Ox O2 Delivery O2 Flow Rate FiO2 03/03/18 09:08 47 131/104 03/03/18 07:45 Room Air 03/03/18 07:00 97.9 20 96 97.9 Physical Exam General: Alert, Oriented X3, Cooperative, No acute distress Heart: Regular rate, Normal S1, Normal S2, No murmurs Lungs: Clear Abdomen: Normal bowel sounds, Soft Extremities: No cyanosis, Other (1+ bilateral lower extremity edema) Skin: No breakdown Labs LABS STRESS DATA End Diast. Vol. 145.0ml Av. Heart Rate 92.0bpm LVEDV index BSA 55.0ml Cardiac Output 2.2L/min End Syst. Vol. 82.0ml CO Index BSA 5.8L/min LVESV index BSA 31.0ml Myocardial Mass 140.0g Eject. Fraction 43.0% Stress Scores Regional WT 3.00 Summed WT 45.00 Regional WM 3.00 Summed WM 17.00 LV Perfusion There is a large sized, mid to distal anterior wall and basal to mid inferior wall defect that is FIXED suggestive of prior infarct without active ischemia. Wall Motion Severe LV dysfunction with an EF of 33% LV Perf. Quant 17 Seg. SSS 3.00 Stress Defect Extent (% LAD) 0.00 Rest Defect Extent (% LAD) Rev. Defect Extent (% LAD) 0.00 Stress Defect Extent (% LCX) 17.50 Rest Defect Extent (% LCX) Rev. Defect Extent (% LCX) 0.00 Stress Defect Extent (% RCA) 12.20 Rest Defect Extent (% RCA) Rev. Defect Extent (% RCA) 0.00 Stress Defect Extent (% FAB) 7.60 Rest Defect Extent (% FAB) Rev. Defect Extent (% FAB) 0.00 Other Information Quality:Average Risk Assessment: Moderate-High Risk Conclusion 1. No evidence of stress induced ischemic EKG changes. 2. Large mostly fixed anterior and inferior defects. 3. Severe LV dysfunction. EF 33% 4. Moderate to high risk study for future CV events. Signed by : Tracy Perez, Electronically Approved : 03/03/2018 11:07:48 DICTATED and SIGNED BY: TRACY PEREZ MD DATE: 03/03/18 1107 Laboratory Tests Test 03/03/18 03:30 Sodium Level 136 mmol/L (136-145) Potassium Level 3.5 mmol/L (3.5-5.1) Chloride Level 96 mmol/L (98-107) Carbon Dioxide Level 32 mmol/L (21-32) Anion Gap 8 (6-14) Blood Urea Nitrogen 17 mg/dL (8-26) Creatinine 1.5 mg/dL (0.7-1.3) Estimated GFR (Cockcroft-Gault) 59.9 Glucose Level 139 mg/dL (70-99) Calcium Level 9.7 mg/dL (8.5-10.1) Magnesium Level 2.0 mg/dL (1.8-2.4) Assessment and Plan Assessmemt and Plan Problems Medical Problems: (1) Acute pulmonary edema Status: Acute (2) Hypertension Status: Acute Comment Review of Relevant I have reviewed the following items torres (where applicable) has been applied. Labs Laboratory Tests Test 03/01/18 12:09 03/01/18 16:30 03/03/18 03:30 Troponin I Quantitative 0.264 ng/mL (0.000-0.055) Urine Opiates Screen Neg (NEG) Urine Methadone Screen Neg (NEG) Urine Barbiturates Neg (NEG) Urine Phencyclidine Screen Neg (NEG) Urine Amphetamine/Methamphetamine Neg (NEG) Urine Benzodiazepines Screen Neg (NEG) Urine Cocaine Screen Pos (NEG) Urine Cannabinoids Screen Neg (NEG) Urine Ethyl Alcohol Neg (NEG) Sodium Level 136 mmol/L (136-145) Potassium Level 3.5 mmol/L (3.5-5.1) Chloride Level 96 mmol/L (98-107) Carbon Dioxide Level 32 mmol/L (21-32) Anion Gap 8 (6-14) Blood Urea Nitrogen 17 mg/dL (8-26) Creatinine 1.5 mg/dL (0.7-1.3) Estimated GFR (Cockcroft-Gault) 59.9 Glucose Level 139 mg/dL (70-99) Calcium Level 9.7 mg/dL (8.5-10.1) Magnesium Level 2.0 mg/dL (1.8-2.4) Laboratory Tests Test 03/03/18 03:30 Sodium Level 136 mmol/L (136-145) Potassium Level 3.5 mmol/L (3.5-5.1) Chloride Level 96 mmol/L (98-107) Carbon Dioxide Level 32 mmol/L (21-32) Anion Gap 8 (6-14) Blood Urea Nitrogen 17 mg/dL (8-26) Creatinine 1.5 mg/dL (0.7-1.3) Estimated GFR (Cockcroft-Gault) 59.9 Glucose Level 139 mg/dL (70-99) Calcium Level 9.7 mg/dL (8.5-10.1) Magnesium Level 2.0 mg/dL (1.8-2.4) Medications Current Medications Aspirin (Danielle Aspirin) 325 mg 1X ONCE PO Last administered on 03/01/18at 08:01 ; Start 03/01/18 at 07:15; Stop 03/01/18 at 07:35; Status DC Furosemide (Lasix) 80 mg 1X ONCE IVP Last administered on 03/01/18at 08:08; Start 03/01/18 at 08:15; Stop 03/01/18 at 08:16; Status DC Nitroglycerin (Nitro-Bid Oint) 1 inch 1X ONCE TP Last administered on at 09:55; Start 03/01/18 at 09:30; Stop 03/01/18 at 09:31; Status DC Aspirin (InfraSearch Aspirin) 325 mg 1X ONCE PO ; Start 03/01/18 at 09:30; Stop 03/01 at 09:31; Status DC Labetalol HCl (Normodyne Iv Push) 20 mg 1X ONCE IVP Last administered on at 09:56; Start 03/01/18 at 09:30; Stop 03/01/18 at 09:31; Status DC Ondansetron HCl (Zofran) 4 mg PRN Q8HRS PRN IV NAUSEA/VOMITING; Start 03/01/18 at 09:45; Stop 03/02/18 at 09:44; Status DC Furosemide (Lasix) 40 mg BID92 IVP Last administered on 03/02/18at 10:53; Start 03/02/18 at 09:00; Stop 03/02/18 at 11:41; Status DC Alprazolam (Xanax) 0.25 mg PRN Q8HRS PRN PO ANXIETY / AGITATION Last administered on 03/02/18 11:18; Start 03/01/18 at 15:00 Amlodipine Besylate (Norvasc) 10 mg DAILY PO Last administered on 03/03/18 09: 07; Start 03/01/18 at 15:30 Aspirin (Ecotrin) 325 mg DAILY PO Last administered on 03/03/18at 09:06; Start 03/02/18 at 09:00 Atorvastatin Calcium (Lipitor) 20 mg DAILY PO Last administered on 03/03/18 09 :06; Start 03/01/18 at 15:30 Carvedilol (Coreg) 12.5 mg BIDWMEALS PO Last administered on 03/03/18 09:08; Start 03/01/18 at 17:00 Cyclobenzaprine HCl (Flexeril) 10 mg PRN TID PRN PO MUSCLE PAIN Last administered on 03/02/18at 11:17; Start 03/01/18 at 15:00 Furosemide (Lasix) 40 mg DAILY PO ; Start 03/02/18 at 09:00; Status UNV Hydrochlorothiazide (Hydrodiuril) 25 mg DAILY PO Last administered on at 09:07; Start 03/01/18 at 15:30 Isosorbide Mononitrate (Imdur) 60 mg DAILY PO Last administered on 03/03/18 09 :06; Start 03/01/18 at 15:30 Tramadol HCl (Ultram) 50 mg PRN Q6HRS PRN PO PAIN Last administered on 11:18; Start 03/01/18 at 15:00 Losartan Potassium (Cozaar) 100 mg DAILY PO Last administered on 03/03/18 09: 07; Start 03/01/18 at 15:30 Info (Do NOT chart on this placeholder) 1 each 1X ONCE MC ; Start 03/01/18 at 16:00; Stop 03/01/18 at 16:01; Status UNV Influenza Virus Vaccine (Afluria Trivalent [id number] Syringe) 0.5 ml ONCE ONCE VAX IM Last administered on 03/01/18at 17:10; Start 03/01/18 at 18:00; Stop at 18:01; Status DC Regadenoson (Lexiscan) 0.4 mg 1X ONCE IV Last administered on 03/02/18at 10:14 ; Start 03/02/18 at 09:45; Stop 03/02/18 at 09:46; Status DC Furosemide (Lasix) 40 mg BID94 PO Last administered on 03/03/18at 09:05; Start 03/02/18 at 16:00 Active Scripts Active Furosemide 40 Mg Tablet 40 Mg PO DAILY 30 Days Alprazolam 0.25 Mg Tablet 0.25 Mg PO PRN Q8HRS PRN 30 Days Tramadol Hcl 50 Mg Tablet 50 Mg PO PRN Q6HRS PRN 30 Days Isosorbide Mononitrate Er (Isosorbide Mononitrate) 30 Mg Tab.er.24h 60 Mg PO DAILY Aspirin Ec (Aspirin) 325 Mg Tablet.dr 1 Tab PO DAILY Cozaar (Losartan Potassium) 100 Mg Tablet 100 Mg PO DAILY Atorvastatin Calcium 20 Mg Tablet 1 Tab PO DAILY Amlodipine Besylate 10 Mg Tablet 10 Mg PO DAILY Hydrochlorothiazide Tablet (Hydrochlorothiazide) 25 Mg Tablet 25 Mg PO DAILY Carvedilol 12.5 Mg Tablet 12.5 Mg PO BIDWMEALS Cyclobenzaprine Hcl 10 Mg Tablet 1 Tab PO TID PRN Vitals/I & O Vital Sign - Last 24 Hours 03/02/18 03/02/18 03/02/18 03/02/18 10:53 10:55 10:59 11:00 Pulse 96 96 96 96 B/P (MAP) 140/92 140/92 140/92 140/92 03/02/18 03/02/18 03/02/18 03/02/18 11:00 11:18 12:18 15:00 Temp 96.4 97.9 96.4 97.9 Pulse 103 98 Resp 18 20 20 18 B/P (MAP) 174/93 (120) 131/78 (95) Pulse Ox 95 94 94 93 O2 Delivery Room Air Room Air Room Air Room Air 03/02/18 03/02/18 03/02/18 03/02/18 17:06 19:00 20:00 23:00 Temp 97.7 98.2 97.7 98.2 Pulse 96 95 92 Resp 18 18 B/P (MAP) 140/92 124/80 (95) 150/93 (112) Pulse Ox 96 93 O2 Delivery Room Air Room Air Room Air 03/03/18 03/03/18 03/03/18 03/03/18 03:00 07:00 07:45 09:06 Temp 97.9 97.9 97.9 97.9 Pulse 82 47 47 Resp 18 20 B/P (MAP) 113/74 (87) 131/104 (113) 131/104 Pulse Ox 96 96 O2 Delivery Room Air Room Air Room Air 03/03/18 03/03/18 03/03/18 09:07 09:07 09:08 Pulse 47 47 47 B/P (MAP) 131/104 131/104 131/104 Intake and Output 03/02/18 03/02/18 03/03/18 15:00 23:00 07:00 Intake Total 500 ml 860 ml Balance 500 ml 860 ml KEITH PARK MD Mar 03, 2018 10:50
[2018-03-03 11:00] VITALS: BP 127/97
--- NOTE | 2018-03-03 11:09 | RAD ---
MR#: [id number] Date of Study: 03/02/2018 Ordering Physician: SHARON MONTEJO, Referring Physician: VERONIQUE MONTES Tech: RT Loi (R) (N) APPROVED REPORT Test Type: Pharmacological Stress Nurse/Tech: Lucy August RN Test Indications: Shortness of breath with exertion,NSTEMI Cardiac History: Hypertension, High cholesterol,CHF,smoker Medications: See Electronic Medical Record Medical History: See Electronic Medical Record Resting ECG: SR with BBB Resting Heart Rate: 92 bpm Resting Blood Pressure: 155/90mmHg Pretest Chest Pain: Atypical angina Nurse/Tech Notes S1,S2 with lungs diminished in the bases. Lower extremity edema. Consent: The procedure was explained to the patient in lay terms. Informed consent was witnessed. Camilo eout was entered into [facility]. History and Stress Test performed by Lucy August RN Pharm. Details Pharmacologic stress testing was performed using 0.4mg per 5ml of regadenoson given intravenously ove r 7-10 seconds. Stress Symptoms Dyspnea,headache-patient stated he had pulsating behind his eyes. Patient also stated at beginning o f test that he was having chest pain in his right breast area. POST EXERCISE Reason for Termination: Infusion complete Target HR: No Max HR: 109 bpm Max Blood Pressure: 161/90mmHg Blood Pressure response to exercise: Normal blood pressure response during stress. Heart Rate response to exercise: WNL Chest Pain: Yes. see note above Arrhythmia: No. ST Change: Yes. ST elevation in leads V4-6. INTERPRETATION Stress EKG Conclusion: No stress induced EKG changes to suggest ischemia. Imaging Protocol IMAGE PROTOCOL: Stress Tc-99m/rest Tc-99m 2 days Rest: Stress: Viability: Radiopharm.Tc99m Sestamibi Dose35.1mCi Duration 20min. Img Date 03/02/2018 Inj-Img [id number]. Stress Admin Site: IV - Left AntecubitalAdministrator: RT Loi (R)(N) STRESS DATA End Diast. Vol.145.0mlAv. Heart Rate92.0bpm LVEDV index BSA55.0mlCardiac Output2.2L/min End Syst. Vol.82.0mlCO Index BSA5.8L/min LVESV index BSA31.0mlMyocardial Lfmv024.0g Eject. Vzvluqgg46.0% Stress Scores Regional WT3.00Summed WT45.00 Regional WM3.00Summed WM17.00 LV Perfusion There is a large sized, mid to distal anterior wall and basal to mid inferior wall defect that is FIX ED suggestive of prior infarct without active ischemia. Wall Motion Severe LV dysfunction with an EF of 33% LV Perf. Quant 17 Seg. SSS3.00 Stress Defect Extent (% LAD)0.00Rest Defect Extent (% LAD)Rev. Defect Extent (% LAD)0.00 Stress Defect Extent (% LCX) 17.50Rest Defect Extent (% LCX)Rev. Defect Extent (% LCX)0.00 Stress Defect Extent (% RCA)12.20Rest Defect Extent (% RCA)Rev. Defect Extent (% RCA)0.00 Stress Defect Extent (% FAB)7.60Rest Defect Extent (% FAB)Rev. Defect Extent (% FAB)0.00 Other Information Quality:Average Risk Assessment: Moderate-High Risk Conclusion 1. No evidence of stress induced ischemic EKG changes. 2. Large mostly fixed anterior and inferior defects. 3. Severe LV dysfunction. EF 33% 4. Moderate to high risk study for future CV events. Signed by : Christopher Rivera, Electronically Approved : 03/03/2018 11:07:48
--- NOTE | 2018-03-03 13:22 | PDOC ---
RADHA MCGINNIS SCHOOL PSYCHOLOGY SPECIALIST 03/03/18 1322: CARDIO Progress Notes Date and Time Date of Service 03/03/2018 Time of Evaluation 1230 Subjective Subjective: No Chest Pain, No shortness of breath, No Palpitations Vitals Vitals Vital Signs Date Time Temp Pulse Resp B/P (MAP) Pulse Ox O2 Delivery O2 Flow Rate FiO2 03/03/18 09:08 47 131/104 03/03/18 07:45 Room Air 03/03/18 07:00 97.9 20 96 97.9 Weight Weight [ ] Input and Output Intake and Output Intake and Output 03/03/18 07:00 Intake Total 1360 ml Balance 1360 ml Intake Oral 1360 ml # Voids 3 Laboratory Labs Laboratory Tests Test 03/03/18 03:30 Sodium Level 136 mmol/L (136-145) Potassium Level 3.5 mmol/L (3.5-5.1) Chloride Level 96 mmol/L (98-107) Carbon Dioxide Level 32 mmol/L (21-32) Anion Gap 8 (6-14) Blood Urea Nitrogen 17 mg/dL (8-26) Creatinine 1.5 mg/dL (0.7-1.3) Estimated GFR (Cockcroft-Gault) 59.9 Glucose Level 139 mg/dL (70-99) Calcium Level 9.7 mg/dL (8.5-10.1) Magnesium Level 2.0 mg/dL (1.8-2.4) Physical Exam HEENT: Neck Supple W Full Motion Chest: Symmetric LUNGS: Clear to Auscultation Heart: S1S2, RRR (SR without significant ectopies) Abdomen: Soft N/T, Other (obese) Extremities: No Calf Tenderness, Other (1+ bilateral LE pitting edema) Neurology: alert, oriented, follow commands Assessment Assessment 1. Acute on chronic diastolic CHF: due to uncontrolled HTN, noncompliance and cocaine. Compensated 2. Accelerated HTN: better 3. Polysubstance abuse: THC, cocaine 4. NSTEMI: likely demand mediated type 2 due to above. 5. Tobaccoism 6. Morbid obesity 7. Presume CAD: MPI with lg anterior and inferior fixed defect, no inducible ischemia 8. 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 DC HCTZ, continue with lasix therapy with K supplement. Continue statin, ASA , losartan, imdur and coreg 2. FR 2L, daily wt, home BP monitoring. Dietitian consult 3. Limited financial resource, CM to provide info for outpt PCP referral and disability 4. Lifestyle modifications and discussed med compliance. 5. Encouraged to follow up in office in 4 weeks. ALMA STOUT MD 03/03/18 1631: CARDIO Progress Notes Assessment Assessment Patient seen and examined. Agree with ELECTRONIC BENCH TECHNICIAN's assessment and plan. Lexiscan nuclear stress test did not show any significant amount of ischemia Blood pressure better controlled since admission Continue current medical regimen RADHA MCGINNIS APRN Mar 03, 2018 13:22 ALMA STOUT MD Mar 03, 2018 16:31
--- NOTE | 2018-03-03 13:27 | PDOC3 ---
Discharge Summary Date of Admission: Mar 01, 2018 Date of Discharge: Mar 03, 2018 Follow-Up: 3-5 days Admitting Diagnosis comment: discharge diagnosis History of Present Illness ASSESSMENT AND PLAN: substance abuse, cocaine Acute on chronic systolic and diastolic heart failure possible myocardial infarction troponin is positive 0.275 admitted. plan MPI 03/02 noted high risk, ok with d/c per cardiology Lasix. Cardiology,following cardiac monitoring, serial enzymes, serial EKGs, home meds. d/c today see CV IN 4 WEEKS Vitals Vitals Vital Signs Date Time Temp Pulse Resp B/P (MAP) Pulse Ox O2 Delivery O2 Flow Rate FiO2 03/03/18 09:08 47 131/104 03/03/18 07:45 Room Air 03/03/18 07:00 97.9 20 96 97.9 Physical Exam General: Alert, Oriented X3, Cooperative, No acute distress Heart: Regular rate, Normal S1, Normal S2, No murmurs Lungs: Clear Abdomen: Normal bowel sounds, Soft Extremities: No cyanosis, Other (1+ bilateral lower extremity edema) Skin: No breakdown FINAL DIAGNOSIS Problems Medical Problems: (1) Acute pulmonary edema Status: Acute (2) Hypertension Status: Acute Brief Hospital Course Mr. Rodríguez is a 52 old [sex] who presented with [ ] Discharge Medications Current Medications Aspirin (Danielle Aspirin) 325 mg 1X ONCE PO Last administered on 03/01/18at 08:01 ; Start 03/01/18 at 07:15; Stop 03/01/18 at 07:35; Status DC Furosemide (Lasix) 80 mg 1X ONCE IVP Last administered on 03/01/18at 08:08; Start 03/01/18 at 08:15; Stop 03/01/18 at 08:16; Status DC Nitroglycerin (Nitro-Bid Oint) 1 inch 1X ONCE TP Last administered on at 09:55; Start 03/01/18 at 09:30; Stop 03/01/18 at 09:31; Status DC Aspirin (Danielle Aspirin) 325 mg 1X ONCE PO ; Start 03/01/18 at 09:30; Stop 03/01 at 09:31; Status DC Labetalol HCl (Normodyne Iv Push) 20 mg 1X ONCE IVP Last administered on at 09:56; Start 03/01/18 at 09:30; Stop 03/01/18 at 09:31; Status DC Ondansetron HCl (Zofran) 4 mg PRN Q8HRS PRN IV NAUSEA/VOMITING; Start 03/01/18 at 09:45; Stop 03/02/18 at 09:44; Status DC Furosemide (Lasix) 40 mg BID92 IVP Last administered on 03/02/18at 10:53; Start 03/02/18 at 09:00; Stop 03/02/18 at 11:41; Status DC Alprazolam (Xanax) 0.25 mg PRN Q8HRS PRN PO ANXIETY / AGITATION Last administered on 03/02/18 11:18; Start 03/01/18 at 15:00 Amlodipine Besylate (Norvasc) 10 mg DAILY PO Last administered on 03/03/18 09: 07; Start 03/01/18 at 15:30 Aspirin (Ecotrin) 325 mg DAILY PO Last administered on 03/03/18at 09:06; Start 03/02/18 at 09:00 Atorvastatin Calcium (Lipitor) 20 mg DAILY PO Last administered on 03/03/18 09 :06; Start 03/01/18 at 15:30; Stop 03/03/18 at 12:24; Status DC Carvedilol (Coreg) 12.5 mg BIDWMEALS PO Last administered on 03/03/18at 09:08; Start 03/01/18 at 17:00 Cyclobenzaprine HCl (Flexeril) 10 mg PRN TID PRN PO MUSCLE PAIN Last administered on 03/02/18at 11:17; Start 03/01/18 at 15:00 Furosemide (Lasix) 40 mg DAILY PO ; Start 03/02/18 at 09:00; Status UNV Hydrochlorothiazide (Hydrodiuril) 25 mg DAILY PO Last administered on at 09:07; Start 03/01/18 at 15:30; Stop 03/03/18 at 12:24; Status DC Isosorbide Mononitrate (Imdur) 60 mg DAILY PO Last administered on 03/03/18at 09 :06; Start 03/01/18 at 15:30; Stop 03/03/18 at 12:24; Status DC Tramadol HCl (Ultram) 50 mg PRN Q6HRS PRN PO PAIN Last administered on at 11:18; Start 03/01/18 at 15:00 Losartan Potassium (Cozaar) 100 mg DAILY PO Last administered on 03/03/18at 09: 07; Start 03/01/18 at 15:30 Info (Do NOT chart on this placeholder) 1 each 1X ONCE MC ; Start 03/01/18 at 16:00; Stop 03/01/18 at 16:01; Status UNV Influenza Virus Vaccine (Afluria Trivalent [id number] Syringe) 0.5 ml ONCE ONCE VAX IM Last administered on 03/01/18at 17:10; Start 03/01/18 at 18:00; Stop at 18:01; Status DC Regadenoson (Lexiscan) 0.4 mg 1X ONCE IV Last administered on 03/02/18at 10:14 ; Start 03/02/18 at 09:45; Stop 03/02/18 at 09:46; Status DC Furosemide (Lasix) 40 mg BID94 PO Last administered on 03/03/18at 09:05; Start 03/02/18 at 16:00 Atorvastatin Calcium (Lipitor) 40 mg QHS PO ; Start 03/03/18 at 21:00 Isosorbide Mononitrate (Imdur) 90 mg DAILY PO ; Start 03/04/18 at 09:00 Active Scripts Active Furosemide 40 Mg Tablet 40 Mg PO DAILY 30 Days Alprazolam 0.25 Mg Tablet 0.25 Mg PO PRN Q8HRS PRN 30 Days Tramadol Hcl 50 Mg Tablet 50 Mg PO PRN Q6HRS PRN 30 Days Isosorbide Mononitrate Er (Isosorbide Mononitrate) 30 Mg Tab.er.24h 60 Mg PO DAILY Aspirin Ec (Aspirin) 325 Mg Tablet.dr 1 Tab PO DAILY Cozaar (Losartan Potassium) 100 Mg Tablet 100 Mg PO DAILY Atorvastatin Calcium 20 Mg Tablet 1 Tab PO DAILY Amlodipine Besylate 10 Mg Tablet 10 Mg PO DAILY Hydrochlorothiazide Tablet (Hydrochlorothiazide) 25 Mg Tablet 25 Mg PO DAILY Carvedilol 12.5 Mg Tablet 12.5 Mg PO BIDWMEALS Cyclobenzaprine Hcl 10 Mg Tablet 1 Tab PO TID PRN Vital Signs Vital Signs Date Time Temp Pulse Resp B/P (MAP) Pulse Ox O2 Delivery O2 Flow Rate FiO2 03/03/18 11:00 97.9 88 20 127/97 (107) 97 Room Air 97.9 Labs Laboratory Tests Test 03/01/18 16:30 03/03/18 03:30 Urine Opiates Screen Neg (NEG) Urine Methadone Screen Neg (NEG) Urine Barbiturates Neg (NEG) Urine Phencyclidine Screen Neg (NEG) Urine Amphetamine/Methamphetamine Neg (NEG) Urine Benzodiazepines Screen Neg (NEG) Urine Cocaine Screen Pos (NEG) Urine Cannabinoids Screen Neg (NEG) Urine Ethyl Alcohol Neg (NEG) Sodium Level 136 mmol/L (136-145) Potassium Level 3.5 mmol/L (3.5-5.1) Chloride Level 96 mmol/L (98-107) Carbon Dioxide Level 32 mmol/L (21-32) Anion Gap 8 (6-14) Blood Urea Nitrogen 17 mg/dL (8-26) Creatinine 1.5 mg/dL (0.7-1.3) Estimated GFR (Cockcroft-Gault) 59.9 Glucose Level 139 mg/dL (70-99) Calcium Level 9.7 mg/dL (8.5-10.1) Magnesium Level 2.0 mg/dL (1.8-2.4) Laboratory Tests Test 03/03/18 03:30 Sodium Level 136 mmol/L (136-145) Potassium Level 3.5 mmol/L (3.5-5.1) Chloride Level 96 mmol/L (98-107) Carbon Dioxide Level 32 mmol/L (21-32) Anion Gap 8 (6-14) Blood Urea Nitrogen 17 mg/dL (8-26) Creatinine 1.5 mg/dL (0.7-1.3) Estimated GFR (Cockcroft-Gault) 59.9 Glucose Level 139 mg/dL (70-99) Calcium Level 9.7 mg/dL (8.5-10.1) Magnesium Level 2.0 mg/dL (1.8-2.4) Allergies Allergies Coded Allergies Type Severity Reaction Last Updated Verified No Known Drug Allergies 03/10/14 No Disposition/Orders: D/C to Home Patient Instructions D/C PLANNING 45 MIN KEITH PARK MD Mar 03, 2018 13:27
--- NOTE | 2018-03-03 13:31 | DISCH ---
DISCHARGE INSTRUCTIONS Condition on Discharge Condition on Discharge: Guarded Activity After Discharge Activity Instructions for Disc: Activity as tolerated Lifting Instructions after Dis: No heavy lifting, No pulling or pushing Driving Instructions after Dis: Do not drive Weight Bearing Status after Di: Full weight bearing Diet after Discharge Diet after Discharge: Cardiac Checks after Discharge Checks after discharge: Check blood press - daily Contacting the DRDerrick after DC Call your doctor for: If your condition worsens Follow-Up Follow up with: SEE PCP IN 3 DAYS, SEE CV IN 4 WEEKS Warfarin Follow-Up Warfarin Follow UP: D/C PLANNING 45 MIN KEITH PARK MD Mar 03, 2018 13:31
[2018-03-03 16:59] VITALS: BP 127/97
[2018-03-03] MEDS ORDERED: ATORVASTATIN CALCIUM 20 MG TABLET PO SCH (21:00)
[2018-03-04] MEDS ORDERED: ISOSORBIDE MONONITRATE ER 30 MG TAB.ER.24H PO SCH (09:00)
== END 2018-03-03 17:15 | disposition home or self-care (01) | DRG 280 ==
LOC: MERGE 06:52 → ER 06:52 → EDBD 06:52 → 5 NORTH 09:30
PROVIDERS: ADMIT Internal Medicine; ATTEND Internal Medicine
DX: I21.4 Non-ST elevation (NSTEMI) myocardial infarction (principal); I50.43 Acute on chronic combined systolic (congestive) and diastolic (congestive) heart failure; I13.0 Hypertensive heart and chronic kidney disease with heart failure and stage 1 through stage 4 chronic kidney disease, or unspecified chronic kidney disease; I42.9 Cardiomyopathy, unspecified; N18.9 Chronic kidney disease, unspecified; E66.01 Morbid (severe) obesity due to excess calories; E78.5 Hyperlipidemia, unspecified; F12.10 Cannabis abuse, uncomplicated; F14.10 Cocaine abuse, uncomplicated; F17.210 Nicotine dependence, cigarettes, uncomplicated; F41.9 Anxiety disorder, unspecified; I16.0 Hypertensive urgency; I25.10 Atherosclerotic heart disease of native coronary artery without angina pectoris; Z82.49 Family history of ischemic heart disease and other diseases of the circulatory system; Z91.19 Patient's noncompliance with other medical treatment and regimen; Z90.89 Acquired absence of other organs
CPT/HCPCS: 36415; 71045; 78452; 80048; 80053; 80307; 81001; 82550; 83690; 83735; 83880; 84443; 84484; 85025; 85610; 90471; 90756; 93005; 93017; 96374; 96375; 96376; A9500; J1940; J2785; J3490; 99285-25; G0479; Q2035

== ENCOUNTER 2018-03-27 23:49 | Emergency (ER) | payer SELFPAY ==
[~2018-03-27] VITALS: Ht 185.4 cm; Wt 140.6 kg
[2018-03-28 01:05] LABS: BASO # 0.1 x10^3/uL (0.0-0.2); BASO % 1 % (0-3); EOS # 0.1 x10^3/uL (0.0-0.7); EOS % 2 % (0-3); HEMATOCRIT 40.7 % (39.0-53.0); HEMOGLOBIN 14.1 g/dL (13.0-17.5); LYMPH # 2.3 x10^3/uL (1.0-4.8); LYMPH % 32 % (24-48); MEAN CORPUSCULAR HEMOGLOBIN 32 pg (25-35); MEAN CORPUSCULAR HGB CONC 35 g/dL (31-37); MEAN CORPUSCULAR VOLUME 93 fL (79-100); MONO # 0.6 x10^3/uL (0.0-1.1); MONO % 9 % (0-9); NEUT # 4.1 x10^3uL (1.8-7.7); NEUT % 57 % (31-73); PLATELET COUNT 210 x10^3/uL (140-400); RED BLOOD COUNT 4.36 x10^6/uL (4.30-5.70); RED CELL DISTRIBUTION WIDTH 13.5 % (11.5-14.5); WHITE BLOOD COUNT 7.3 x10^3/uL (4.0-11.0)
[2018-03-28 01:17] LABS: CALCIUM 9.5 mg/dL (8.5-10.1); CREATININE 1.3 mg/dL (0.7-1.3); GFR 70.4; POTASSIUM 3.9 mmol/L (3.5-5.1)
[2018-03-28 01:19] LABS: ALBUMIN 3.6 g/dL (3.4-5.0); ALBUMIN/GLOBULIN RATIO 1.1 (1.0-1.7); TOTAL BILIRUBIN 0.3 mg/dL (0.2-1.0); TOTAL PROTEIN 6.9 g/dL (6.4-8.2)
[2018-03-28] MEDS ORDERED: cloNIDine HCL 0.1 MG TABLET PO ONE (01:30)
[2018-03-28] MEDS ORDERED: IV NORMAL SALINE 1000ML BAG 1,000 ML IV ONE (01:30)
--- NOTE | 2018-03-28 02:07 | PHYS DOC ---
Past Medical History Past Medical History: CHF, Hypertension Additional Past Medical Histor: drug abuse Past Surgical History: Tonsillectomy Alcohol Use: None Drug Use: None Adult General Chief Complaint Chief Complaint: LOWER EXT PAIN HPI HPI Patient is a 53 year old male who presents with patient noncompliance and hypertension. She was most recently discharged in March 03 with CHF and cocaine use. He states that he has not been able to get his prescriptions and is currently homeless and is not taking medication since then. Patient returns today because he is concerned that this CHF may come back. Patient does present markedly hypertensive to the emergency department at 193/115. She currently denies chest pain but states he does see some mild swelling to his lower extremities. Discharge Summary Date of Admission: Mar 01, 2018 Date of Discharge: Mar 03, 2018 Follow-Up: 3-5 days Admitting Diagnosis comment: discharge diagnosis History of Present Illness ASSESSMENT AND PLAN: substance abuse, cocaine Acute on chronic systolic and diastolic heart failure possible myocardial infarction troponin is positive 0.275 admitted. plan MPI 03/02 noted high risk, ok with d/c per cardiology Lasix. Cardiology,following cardiac monitoring, serial enzymes, serial EKGs, home meds. d/c today see CV IN 4 WEEKS Review of Systems Review of Systems Constitutional: Denies fever or chills [] Eyes: Denies change in visual acuity, redness, or eye pain [] HENT: Denies nasal congestion or sore throat [] Respiratory: Denies cough or shortness of breath [] Cardiovascular: No additional information not addressed in HPI [] GI: Denies abdominal pain, nausea, vomiting, bloody stools or diarrhea [] : Denies dysuria or hematuria [] Musculoskeletal: Denies back pain or joint pain [] Integument: Denies rash or skin lesions [] Neurologic: Denies headache, focal weakness or sensory changes [] Endocrine: Denies polyuria or polydipsia [] All other systems were reviewed and found to be within normal limits, except as documented in this note. Current Medications Current Medications Current Medications Medications (Trade) Dose Ordered Sig/Franko Start Time Stop Time Status Last Admin Dose Admin Clonidine HCl (Catapres) 0.2 mg 1X ONCE 03/28/18 01:30 03/28/18 01:31 DC 03/28/18 01:49 0.2 MG Sodium Chloride 1,000 ml @ 100 mls/hr 1X ONCE 03/28/18 01:30 03/28/18 11:29 03/28/18 01:50 100 MLS/HR Allergies Allergies Allergies Coded Allergies Type Severity Reaction Last Updated Verified No Known Drug Allergies 03/10/14 No Physical Exam Physical Exam Constitutional: Well developed, well nourished, no acute distress, non-toxic appearance. [] HENT: Normocephalic, atraumatic, bilateral external ears normal, oropharynx moist, no oral exudates, nose normal. [] Eyes: PERRLA, EOMI, conjunctiva normal, no discharge. [] Neck: Normal range of motion, no tenderness, supple, no stridor. [] Cardiovascular:Heart rate regular rhythm, no murmur [] Lungs & Thorax: Bilateral breath sounds clear to auscultation [] Abdomen: Bowel sounds normal, soft, no tenderness, no masses, no pulsatile masses. [] Skin: Warm, dry, no erythema, no rash. [] Back: No tenderness, no CVA tenderness. [] Extremities: No tenderness, no cyanosis, no clubbing, ROM intact, no edema. [] Neurologic: Alert and oriented X 3, normal motor function, normal sensory function, no focal deficits noted. [] Psychologic: Affect normal, judgement normal, mood normal. [] Current Patient Data Vital Signs Vital Signs Date Time Temp Pulse Resp B/P (MAP) Pulse Ox O2 Delivery O2 Flow Rate FiO2 03/28/18 01:49 103 124/76 03/28/18 00:12 97.6 30 97 Room Air 97.6 Lab Values Laboratory Tests Test 03/28/18 00:40 White Blood Count 7.3 x10^3/uL (4.0-11.0) Red Blood Count 4.36 x10^6/uL (4.30-5.70) Hemoglobin 14.1 g/dL (13.0-17.5) Hematocrit 40.7 % (39.0-53.0) Mean Corpuscular Volume 93 fL (79-100) Mean Corpuscular Hemoglobin 32 pg (25-35) Mean Corpuscular Hemoglobin Concent 35 g/dL (31-37) Red Cell Distribution Width 13.5 % (11.5-14.5) Platelet Count 210 x10^3/uL (140-400) Neutrophils (%) (Auto) 57 % (31-73) Lymphocytes (%) (Auto) 32 % (24-48) Monocytes (%) (Auto) 9 % (0-9) Eosinophils (%) (Auto) 2 % (0-3) Basophils (%) (Auto) 1 % (0-3) Neutrophils # (Auto) 4.1 x10^3uL (1.8-7.7) Lymphocytes # (Auto) 2.3 x10^3/uL (1.0-4.8) Monocytes # (Auto) 0.6 x10^3/uL (0.0-1.1) Eosinophils # (Auto) 0.1 x10^3/uL (0.0-0.7) Basophils # (Auto) 0.1 x10^3/uL (0.0-0.2) Sodium Level 139 mmol/L (136-145) Potassium Level 3.9 mmol/L (3.5-5.1) Chloride Level 103 mmol/L (98-107) Carbon Dioxide Level 29 mmol/L (21-32) Anion Gap 7 (6-14) Blood Urea Nitrogen 14 mg/dL (8-26) Creatinine 1.3 mg/dL (0.7-1.3) Estimated GFR (Cockcroft-Gault) 70.4 BUN/Creatinine Ratio 11 (6-20) Glucose Level 132 mg/dL (70-99) H Calcium Level 9.5 mg/dL (8.5-10.1) Total Bilirubin 0.3 mg/dL (0.2-1.0) Aspartate Amino Transferase (AST) 28 U/L (15-37) Alanine Aminotransferase (ALT) 42 U/L (16-63) Alkaline Phosphatase 60 U/L (46-116) Troponin I Quantitative 0.232 ng/mL (0.000-0.055) Total Protein 6.9 g/dL (6.4-8.2) Albumin 3.6 g/dL (3.4-5.0) Albumin/Globulin Ratio 1.1 (1.0-1.7) Laboratory Tests 03/28/18 00:40 Laboratory Tests 03/28/18 00:40 EKG EKG Sinus rhythm at a rate of 96[] Radiology/Procedures Radiology/Procedures [] Course & Med Decision Making Course & Med Decision Making Pertinent Labs and Imaging studies reviewed. (See chart for details) Sleeping in no distress and his current blood pressure is 123/70. Patient has no acute complaints at this time and requested a meal stating that he was hungry. Patient was asked for urine after having rested for a period of time and became belligerent and abusive to the staff and decided to sign out AMA. [] Dragon Disclaimer Dragon Disclaimer This electronic medical record was generated, in whole or in part, using a voice recognition dictation system. Departure Departure Impression: Primary Impression: Hypertension Additional Impression: Noncompliance with diet and medication regimen Disposition: 07 AGAINST MEDICAL ADVICE Condition: STABLE Referrals: NO PCP (PCP) Problem Qualifiers TERRENCE FERRARA MD Mar 28, 2018 02:07
[2018-03-28 02:30] VITALS: BP 150/84
--- NOTE | 2018-03-28 04:28 | RAD ---
EXAM: AP View of the chest DATE: 03/28/2018 3:22 AM INDICATION: Congestive heart failure, dyspnea. COMPARISON: 07/27/2017 FINDINGS/ IMPRESSION: Interval increase in cardiomegaly with left pleural effusion and bilateral perihilar airspace and interstitial opacities consistent with pulmonary edema. No pneumothorax. Electronically signed by: Matthieu Danielle MD (03/28/2018 4:24 AM) [facility]
--- NOTE | 2018-03-30 10:55 | EKG ---
[facility] [address] [place] [address] Test Date: 2018-03-28 Test Time: 00:18:41 Pat Name: NOA [place] Department: Room: Gender: M Social Worker Health Services: : 1965 Requested By: TERRENCE FERRARA Order Number: [id number] Reading MD: Alejandro Weinstein Measurements Intervals [place] Rate: 96 P: 36 NE: 172 QRS: 0 QRSD: 112 T: 126 QT: 394 QTc: 499 Interpretive Statements SINUS RHYTHM LEFT ATRIAL ABNORMALITY LEFTWARD AXIS INCOMPLETE RIGHT BUNDLE BRANCH BLOCK CONSIDER LEFT VENTRICULAR HYPERTROPHY T ABNORMALITY IN HIGH LATERAL LEADS PROLONGED QT ABNORMAL ECG Electronically Signed On 03-30-2018 11:42:17 CDT by Alejandro Weinstein
== END 2018-03-28 03:45 | disposition left against medical advice (07) ==
LOC: ER 23:49
DX: I11.0 Hypertensive heart disease with heart failure (principal); I50.9 Heart failure, unspecified; F14.20 Cocaine dependence, uncomplicated; Z91.11 Patient's noncompliance with dietary regimen; Z91.19 Patient's noncompliance with other medical treatment and regimen; Z90.89 Acquired absence of other organs; Z59.0 Homelessness
CPT/HCPCS: 36415; 71045; 80053; 84484; 85025; 99285; G0480; J7030; 93005

== ENCOUNTER 2018-09-14 18:52 | Emergency (ER) | payer SELFPAY ==
[~2018-09-14] VITALS: Ht 188 cm; Wt 142.4 kg
[~2018-09-14 18:52] MED LIST changes: -AMLO10TA6 PO; +AMLO10TA8 PO; +ASPI325T8 PO; +BUSP10TA PO; +CARV12.5 PO; +CARV12.511 PO; -CARV12.52 PO; -CHLO25TA PO; +CHLO25TA10 PO; +GABA300C18 PO; +GLIP5TAB10 PO; +HYDR-2145 PO; -HYDR25TA9 PO; +ISOS60TA2 PO; +LORA-434 PO; +LOSA100T14 PO; -OXYC-323 PO; +OXYC1TAB15 PO
[2018-09-14 19:20] VITALS: BP 173/114
--- NOTE | 2018-09-14 20:05 | PHYS DOC ---
Past Medical History Past Medical History: CHF, Hypertension Additional Past Medical Histor: drug abuse (ЕЛЕНА LLAMAS APRN) Past Surgical History: Tonsillectomy (ЕЛЕНА LLAMAS APRN) Alcohol Use: None Drug Use: None (ЕЛЕНА LLAMAS APRN) Adult General Chief Complaint Chief Complaint: OTHER COMPLAINTS HPI HPI 53-year-old male presents to ER with complaints of rectal pain for the past 1-2 days. Patient states he has been constipated and has been on a stool softener for the past couple of days and today was his stools were softer. Patient states he has intermittent rectal pain denies any bleeding. Patient reports history of hemorrhoids as well as abscess in the past. Pt denies any fever, urinary symptoms, nausea or vomiting, or swelling in extremities. Patient reports he did take a bath which help the pain some. (ЕЛЕНА LLAMAS APRN) Review of Systems Review of Systems Constitutional: Denies fever or chills [] Respiratory: Denies cough or shortness of breath [] Cardiovascular: No additional information not addressed in HPI [] GI: Denies abdominal pain, nausea, vomiting, bloody stools or diarrhea. Reports had constipation past couple of days and that has improved. Reports rectal pain : Denies dysuria or hematuria [] Musculoskeletal: Denies back pain or joint pain [] Integument: Denies rash or skin lesions [] Neurologic: Denies headache, focal weakness or sensory changes [] All other systems were reviewed and found to be within normal limits, except as documented in this note. (ЕЛЕНА LLAMAS APRN) Allergies Allergies Allergies Coded Allergies Type Severity Reaction Last Updated Verified No Known Drug Allergies 03/10/14 No (LINDA CARROLL DO) Physical Exam Physical Exam Constitutional: Well developed, well nourished, no acute distress, non-toxic appearance. [] HENT: Normocephalic, atraumatic, oropharynx moist, nose normal. [] Eyes: Pupils equal, conjunctiva normal, no discharge. [] Neck: Normal range of motion, supple Cardiovascular: Tachycardic heart rate- with pt reporting his HR is NL at 110- 115 Lungs & Thorax: Resp. equal/nonlabored Abdomen: Bowel sounds normal, soft/obese, no tenderness Skin: Warm, dry, no erythema, no rash. [] Back: No tenderness, no CVA tenderness. [] Extremities: No tenderness, ROM intact Neurologic: Alert and oriented X 3, normal motor function Psychologic: Affect normal, judgement normal, mood normal. [] Rectal exam done with RN at bedside for weight loss sales consultant. Patient has no palpable abscess on bilateral buttock or rectum. There is no external hemorrhoid and on examination no palpable internal hemorrhoid. Patient's skin is normal limits no rash or excoriation. (ЕЛЕНА LLAMAS APRN) Current Patient Data Vital Signs Vital Signs Date Time Temp Pulse Resp B/P (MAP) Pulse Ox O2 Delivery O2 Flow Rate FiO2 09/14/18 19:20 98.2 114 20 173/114 (133) 100 Room Air 98.2 (LINDA CARROLL DO) EKG EKG [] (ЕЛЕНА LLAMAS APRN) Radiology/Procedures Radiology/Procedures [] (ЕЛЕНА LLAMAS APRN) Course & Med Decision Making Course & Med Decision Making Patient was evaluated in the ER for complaints of rectal pain which started after having constipation the past few days. On exam patient had no external or internal hemorrhoids palpable or palpable abscess. Skin had no erythema or rash. Discussed [id number]-[id number] options for pain relief such as Tucks pad. Also discussed sitz baths or warm washcloth to affected area. Discussed if symptoms persist patient follow-up with his primary care physician. Patient encouraged to continue stool softeners as needed as well as adequate water intake. Education provided on signs and symptoms to return to ER. Discharge instructions were discussed. Patient to follow-up with primary care physician if symptoms persist or with any concerns. (ЕЛЕНА LLAMAS APRN) Dragon Disclaimer Dragon Disclaimer This electronic medical record was generated, in whole or in part, using a voice recognition dictation system. (ЕЛЕНА LLAMAS APRN) Departure Departure Impression: Primary Impression: Rectal pain Disposition: 01 HOME, SELF-CARE Condition: STABLE Referrals: NO PCP (PCP) Patient Instructions: Sitz Bath Additional Instructions: You were evaluated in the ER for rectal pain. You were found to have no palpable abscess or external/internal hemorrhoids. You can use zarm-eej-aahuzcs Tucks pads or other topical treatment as directed on container. He can apply warm compress to affected area every 3-4 hours for 20-30 minutes at a time. You can try sitz baths for other treatment for pain relief. If symptoms persist follow-up with your primary care physician for reevaluation and further care. Attending Signature Attending Signature I have reviewed the PA/DANCE STUDIO MANAGER's note and plan of care. I was available for consultation as needed during the patient's visit in the emergency department. I agree with the clinical impression, plan, and disposition. (LINDA CARROLL DO) ЕЛНЕА LLAMAS REACH TRUCK OPERATOR Sep 14, 2018 20:05 LINDA CARROLL DO Oct 03, 2018 13:10
== END 2018-09-14 20:15 | disposition home or self-care (01) ==
LOC: ER 18:52
DX: K62.89 Other specified diseases of anus and rectum (principal); I11.0 Hypertensive heart disease with heart failure; I50.9 Heart failure, unspecified; Z90.89 Acquired absence of other organs
CPT/HCPCS: 99281

== ENCOUNTER 2018-12-21 12:35 | Emergency (ER) | payer SELFPAY ==
[~2018-12-21] VITALS: Ht 188 cm; Wt 149.7 kg
[~2018-12-21 12:35] MED LIST changes: +BUSP15TA PO; +NITR0.4T22 SL
[2018-12-21 13:21] LABS: CALCIUM 8.9 mg/dL (8.5-10.1); CREATININE 0.9 mg/dL (0.7-1.3); GFR 107.6; POTASSIUM 3.7 mmol/L (3.5-5.1)
[2018-12-21 13:26] LABS: ALBUMIN 3.7 g/dL (3.4-5.0); ALBUMIN/GLOBULIN RATIO 0.9 (1.0-1.7); TOTAL BILIRUBIN 0.3 mg/dL (0.2-1.0); TOTAL PROTEIN 7.8 g/dL (6.4-8.2)
[2018-12-21 13:28] LABS: BASO # 0.1 x10^3/uL (0.0-0.2); BASO % 1 % (0-3); EOS # 0.2 x10^3/uL (0.0-0.7); EOS % 4 % (0-3); HEMATOCRIT 42.3 % (39.0-53.0); HEMOGLOBIN 14.1 g/dL (13.0-17.5); LYMPH # 1.6 x10^3/uL (1.0-4.8); LYMPH % 29 % (24-48); MEAN CORPUSCULAR HEMOGLOBIN 31 pg (25-35); MEAN CORPUSCULAR HGB CONC 33 g/dL (31-37); MEAN CORPUSCULAR VOLUME 93 fL (79-100); MONO # 0.5 x10^3/uL (0.0-1.1); MONO % 8 % (0-9); NEUT # 3.3 x10^3uL (1.8-7.7); NEUT % 58 % (31-73); PLATELET COUNT 184 x10^3/uL (140-400); RED BLOOD COUNT 4.54 x10^6/uL (4.30-5.70); RED CELL DISTRIBUTION WIDTH 14.9 % (11.5-14.5); WHITE BLOOD COUNT 5.7 x10^3/uL (4.0-11.0)
--- NOTE | 2018-12-21 13:31 | RAD ---
Chest radiograph 12/21/2018 1:03 PM INDICATION: Chest pain COMPARISON: November 24, 2018 TECHNIQUE: Frontal view of the chest is provided. FINDINGS: The cardiomediastinal silhouette is enlarged, stable. There are no pleural effusions. Decrease in pulmonary vascular congestion. There is no pneumothorax. The lungs are clear. Improved aeration of the left lung base. No significant osseous abnormality is identified. IMPRESSION: Improved pulmonary vascular congestion and aeration of the left lung base. Stable cardiomegaly. Electronically signed by: Melanie Stein MD (12/21/2018 1:29 PM) [id number]
--- NOTE | 2018-12-21 13:36 | EKG ---
[facility] [address] [place] [address] Test Date: 2018-12-21 Test Time: 12:42:41 Pat Name: NOA [place] Department: Room: Gender: M Match Maker: : 1965 Requested By: PATIENCE MORENO Order Number: [id number] Reading MD: Measurements Intervals [place] Rate: 84 P: 41 GA: 174 QRS: -6 QRSD: 108 T: 86 QT: 390 QTc: 464 Interpretive Statements SINUS RHYTHM LEFT ATRIAL ABNORMALITY LEFTWARD AXIS INCOMPLETE RIGHT BUNDLE BRANCH BLOCK CONSIDER LEFT VENTRICULAR HYPERTROPHY T ABNORMALITY IN HIGH LATERAL LEADS ABNORMAL ECG No previous ECG available for comparison
[2018-12-21] MEDS ORDERED: HYDR-2145 PO (14:25)
[2018-12-21] MEDS ORDERED: NITR0.4T SL (14:25)
--- NOTE | 2018-12-21 14:25 | PHYS DOC ---
Past Medical History Past Medical History: CAD, CHF, Diabetes-Type II, High Cholesterol, Hypertension Additional Past Medical Histor: drug abuse Past Surgical History: Tonsillectomy Alcohol Use: None Drug Use: None Adult General Chief Complaint Chief Complaint: CHEST PAIN HPI HPI Patient is a 53 year old -[place] male with history of ingestive heart failure, CAD, hypertension, polysubstance abuse and medical noncompliance who presents with chest discomfort intermittently the past 12 hours. Patient states symptoms are similar to his normal angina chest pain and occurred while he was i n a verbal altercation rated patient states he was unable to locate his nitroglycerin prompting him to come to the emergency department. He further states that he is been out of his hydrochlorothiazide for at least 1 week reports increased fluid retention and bilateral leg heaviness. Denies shortness breath nausea vomiting, fever, chills, and sweats. No other acute symptoms or complaints.[] Review of Systems Review of Systems Review symptoms as per history of present illness. All other review symptoms are negative. All other systems were reviewed and found to be within normal limits, except as documented in this note. Allergies Allergies Allergies Coded Allergies Type Severity Reaction Last Updated Verified No Known Drug Allergies 03/10/14 No Physical Exam Physical Exam Constitutional: Well developed, well nourished, no acute distress, non-toxic appearance. [] HENT: Normocephalic, atraumatic, bilateral external ears normal, oropharynx moist, no oral exudates, nose normal. [] Eyes: PERRLA, EOMI, conjunctiva normal, no discharge. [] Neck: Normal range of motion, no tenderness, supple, no stridor. [] Cardiovascular:Heart rate regular rhythm, no murmur, bipedal edema, negative Homans signs. [] Lungs & Thorax: Bilateral breath sounds clear to auscultation [] Abdomen: Bowel sounds normal, soft, no tenderness, no masses, no pulsatile masses. [] Skin: Warm, dry, no erythema, no rash. [] Back: No tenderness, no CVA tenderness. [] Extremities: No tenderness, no cyanosis, no clubbing, ROM intact, no edema. [] Neurologic: Alert and oriented X 3, normal motor function, normal sensory function, no focal deficits noted. [] Psychologic: Affect normal, judgement normal, mood normal. [] Current Patient Data Vital Signs Vital Signs Date Time Temp Pulse Resp B/P (MAP) Pulse Ox O2 Delivery O2 Flow Rate FiO2 12/21/18 13:00 97.7 88 16 139/88 (105) 96 Room Air 97.7 Lab Values Laboratory Tests Test 12/21/18 13:00 White Blood Count 5.7 x10^3/uL (4.0-11.0) Red Blood Count 4.54 x10^6/uL (4.30-5.70) Hemoglobin 14.1 g/dL (13.0-17.5) Hematocrit 42.3 % (39.0-53.0) Mean Corpuscular Volume 93 fL (79-100) Mean Corpuscular Hemoglobin 31 pg (25-35) Mean Corpuscular Hemoglobin Concent 33 g/dL (31-37) Red Cell Distribution Width 14.9 % (11.5-14.5) H Platelet Count 184 x10^3/uL (140-400) Neutrophils (%) (Auto) 58 % (31-73) Lymphocytes (%) (Auto) 29 % (24-48) Monocytes (%) (Auto) 8 % (0-9) Eosinophils (%) (Auto) 4 % (0-3) H Basophils (%) (Auto) 1 % (0-3) Neutrophils # (Auto) 3.3 x10^3uL (1.8-7.7) Lymphocytes # (Auto) 1.6 x10^3/uL (1.0-4.8) Monocytes # (Auto) 0.5 x10^3/uL (0.0-1.1) Eosinophils # (Auto) 0.2 x10^3/uL (0.0-0.7) Basophils # (Auto) 0.1 x10^3/uL (0.0-0.2) Sodium Level 137 mmol/L (136-145) Potassium Level 3.7 mmol/L (3.5-5.1) Chloride Level 100 mmol/L (98-107) Carbon Dioxide Level 29 mmol/L (21-32) Anion Gap 8 (6-14) Blood Urea Nitrogen 13 mg/dL (8-26) Creatinine 0.9 mg/dL (0.7-1.3) Estimated GFR (Cockcroft-Gault) 107.6 BUN/Creatinine Ratio 14 (6-20) Glucose Level 96 mg/dL (70-99) Calcium Level 8.9 mg/dL (8.5-10.1) Total Bilirubin 0.3 mg/dL (0.2-1.0) Aspartate Amino Transferase (AST) 18 U/L (15-37) Alanine Aminotransferase (ALT) 30 U/L (16-63) Alkaline Phosphatase 73 U/L (46-116) Troponin I Quantitative 0.241 ng/mL (0.000-0.055) Total Protein 7.8 g/dL (6.4-8.2) Albumin 3.7 g/dL (3.4-5.0) Albumin/Globulin Ratio 0.9 (1.0-1.7) L Laboratory Tests 12/21/18 13:00 Laboratory Tests 12/21/18 13:00 EKG EKG [EKG: Reviewed] Radiology/Procedures Radiology/Procedures [Chest x-ray: Pulmonary vascular congestion per radiology report] Course & Med Decision Making Course & Med Decision Making Pertinent Labs and Imaging studies reviewed. (See chart for details) [EKG troponin is chronically elevated. Repeat troponin obtained. Nitroglycerin and Lasix provided. Anticipate discharge home pending and hematocrit improvement and review of repeat. Recommendations are for patient to resume diuretic and follow up with cardiology. Will refill nitroglycerin. ] Dragon Disclaimer Dragon Disclaimer This electronic medical record was generated, in whole or in part, using a voice recognition dictation system. Departure Departure Impression: Primary Impression: CHF (congestive heart failure) Additional Impression: Angina pectoris Disposition: 01 HOME, SELF-CARE Condition: GUARDED Referrals: NO PCP (PCP) Patient Instructions: Angina Pectoris, Mrre-be-Ngur, Heart Failure, [id number] Additional Instructions: Please fill medications after leaving the emergency department and take as directed. Follow-up with your PCP and vp securities in the next 5-7 days. Return to the ED if new or worsening symptoms. Scripts Nitroglycerin (NITROSTAT) 0.4 Mg Tab.subl 0.4 MG SL PRN Q5MIN PRN for CHEST PAIN, #60 BOTTLE Prov: PATIENCE MORENO DO 12/21/18 Hydrochlorothiazide (HYDROCHLOROTHIAZIDE TABLET ) 25 Mg Tablet 25 MG PO BID for DIURETIC for 30 Days, #60 TAB 0 Refills Prov: PATIENCE MORENO DO 12/21/18 Problem Qualifiers PATIENCE MORENO DO Dec 21, 2018 14:25
[2018-12-21 15:47] VITALS: BP 146/81
[2018-12-21 16:19] LABS: AMPHETAMINE/METHAMPHETAMINE NEG (NEG); BARBITURATES NEG (NEG); BENZODIAZEPINES NEG (NEG); CANNABINOIDS POS (NEG); COCAINE NEG (NEG); METHADONE NEG (NEG); OPIATES NEG (NEG); PHENCYCLIDINE NEG (NEG)
== END 2018-12-21 15:58 | disposition home or self-care (01) ==
LOC: ER 12:35
DX: I11.0 Hypertensive heart disease with heart failure (principal); I50.9 Heart failure, unspecified; I25.119 Atherosclerotic heart disease of native coronary artery with unspecified angina pectoris; E11.9 Type 2 diabetes mellitus without complications; E78.00 Pure hypercholesterolemia, unspecified; I25.10 Atherosclerotic heart disease of native coronary artery without angina pectoris; Z91.19 Patient's noncompliance with other medical treatment and regimen; Z90.89 Acquired absence of other organs
CPT/HCPCS: 36415; 71045; 80053; 80307; 83880; 84484; 85025; 93005; 99285-25

== ENCOUNTER 2019-07-09 12:45 | Emergency (ER) | payer OTHER ==
[~2019-07-09] VITALS: Ht 188 cm; Wt 146.0 kg
[~2019-07-09 12:45] MED LIST changes: +NITR0.4T24 SL
[2019-07-09 13:39] VITALS: BP 160/105
--- NOTE | 2019-07-09 14:43 | PHYS DOC ---
Past Medical History Past Medical History: CAD, CHF, Diabetes-Type II, High Cholesterol, Hyper tension Additional Past Medical Histor: drug abuse Past Surgical History: Appendectomy, Tonsillectomy Alcohol Use: None Drug Use: None Adult General Chief Complaint Chief Complaint: MULTIPLE COMPLAINTS [facility] HPI Patient is a 54 year old history of hypertension, dyslipidemia, coronary artery disease, diabetes mellitus who presents with left knee injury and pain. Patient states he has had chronic left knee pain and had a fall 4 days ago on ice and landed on pain did left knee without head injury or os of consciousness. Patient complaining of increasing chronic knee pain for the last 4 days that getting worse with bearing weight and activity. Patient states he took his home pain medication without change of his pain. Patient denies focal neurodeficit. Patient also states he started some exercise and feeling pain in muscle of his abdomen since he started exercising that getting worse with movement. Patient denies nausea and vomiting, shortness of breath, chest pain, diarrhea and constipation, urinary symptoms, fever and chills. Review of Systems Review of Systems Constitutional: Denies fever or chills [] Eyes: Denies change in visual acuity, redness, or eye pain [] HENT: Denies nasal congestion or sore throat [] Respiratory: Denies cough or shortness of breath [] Cardiovascular: No additional information not addressed in HPI [] GI: Denies nausea, vomiting, bloody stools or diarrhea [] : Denies dysuria or hematuria [] Musculoskeletal: Denies back pain, reports joint pain [] Integument: Denies rash or skin lesions [] Neurologic: Denies headache, focal weakness or sensory changes [] Endocrine: Denies polyuria or polydipsia [] All other systems were reviewed and found to be within normal limits, except as documented in this note. Allergies Allergies Allergies Coded Allergies Type Severity Reaction Last Updated Verified No Known Drug Allergies 03/10/14 No Physical Exam Physical Exam Constitutional: Well developed, well nourished, mild distress, non-toxic appearance, morbidly obese. [] HENT: Normocephalic, atraumatic. Eyes: PERRLA, EOMI, conjunctiva normal, no discharge. [] Neck: Normal range of motion, no tenderness, supple, no stridor. [] Cardiovascular:Heart rate regular rhythm, no murmur [] Lungs & Thorax: Bilateral breath sounds clear to auscultation [] Abdomen: Bowel sounds normal, soft, no tenderness, no masses, no pulsatile masses. [] Skin: Warm, dry, no erythema, no rash. [] Extremities: Left knee without deformity, mild edema, painful range of motion without tenderness, no neurovascular deficit . Neurologic: Alert and oriented X 3, no focal deficits noted. [] Psychologic: Affect normal, judgement normal, mood normal. [] Current Patient Data Vital Signs Vital Signs Date Time Temp Pulse Resp B/P (MAP) Pulse Ox O2 Delivery O2 Flow Rate FiO2 07/09/19 13:39 98.6 86 160/105 (123) 97 Room Air 98.6 EKG EKG [] Radiology/Procedures Radiology/Procedures [facility] [address] [place] [address] IMAGING REPORT Signed PATIENT: NOA [place] ACCOUNT: [id number] : 1965 LOCATION: ER AGE: 54 SEX: M EXAM STATUS: REG ER ORD. PHYSICIAN: GABRIELA CORLEY MD REASON: fall PROCEDURE: KNEE LEFT 4V KNEE LEFT 4V History: Fall Comparison: September 26, 2017 Findings: 4 views of the left knee are submitted. There is again moderate to severe narrowing of the medial compartment joint space of the left knee with associated osteophyte formation. There is moderate to large suprapatellar joint effusion. As seen on the lateral view only, there is small focus of lucency posteriorly which may be a small fracture of the posterior tibial plateau although not well-visualized on other views. There is also osteoarthritic change of the patellofemoral articulation. Impression: 1. There is suprapatellar joint effusion. There is a small focus of lucency of the posterior, proximal tibia which may be a small fracture. 2. There is osteoarthritic change of the medial compartment. Electronically signed by: Hue Powell MD (07/09/2019 2:54 PM) [facility] DICTATED and SIGNED BY: HUE POWELL MD DATE: 07/09/19 1454 [facility] [address] [facility] [place] [address] IMAGING REPORT Signed PATIENT: NOA [place] ACCOUNT: [id number] : 1965 LOCATION: ER AGE: 54 SEX: M EXAM STATUS: REG ER ORD. PHYSICIAN: GABRIELA CORLEY MD REASON: left knee injury, questionable fracture PROCEDURE: CT LOWER EXTREMITY WO LEFT Exam: CT left knee without contrast INDICATION: Fall TECHNIQUE: Sequential axial images through the left knee obtained without IV contrast. Sagittal and coronal reformatted images were reconstructed from the axial data and reviewed. Comparisons: Radiographs same day FINDINGS: Moderate-sized suprapatellar effusion. No lipohemarthrosis. No acute or healed fracture identified. Bone mineralization is normal. There is moderate to severe osteoarthritic change at the knee joint greatest in the medial compartment with joint space narrowing, subchondral sclerosis and marginal osteophytosis. There is mild soft tissue swelling in the anterior subcutaneous fat overlying the knee. IMPRESSION: No acute fracture identified. Moderate-sized suprapatellar effusion. Degenerative changes described above. Exposure: One or more of the following in the visualized dose reduction techniques were utilized for this examination: 1. Automated exposure control 2. Adjustment of the MA and/or KV according to patient size 3. Use of iterative of reconstructive technique Electronically signed by: Carolina Benavidez MD (07/09/2019 4:17 PM) [facility] DICTATED and SIGNED BY: CAROLINA BENAVIDEZ MD DATE: 07/09/19 3728 Course & Med Decision Making Course & Med Decision Making Pertinent Imaging studies reviewed. (See chart for details) Evaluation of patient showed 54-year-old male patient with history of chronic left knee pain and injury to knee 4 days ago. Patient had moderate edema of left knee. X-ray was questionable for fracture but CT did not confirmed fracture and just showed joint effusion. Lewis wrap was applied and patient was advised to using a cane and follow up with orthopedic physician. Dragon Disclaimer Dragon Disclaimer This electronic medical record was generated, in whole or in part, using a voice recognition dictation system. Departure Departure Impression: Primary Impression: Left knee sprain Disposition: HOME, SELF-CARE (at 1640) Condition: STABLE Referrals: NO PCP (PCP) Patient Instructions: Knee Sprain Additional Instructions: Apply ice on left knee Follow-up with your primary care physician in 3-5 days Return to ER if not getting better Thank you for visiting [facility]. We appreciate you trusting us with your care. If any additional problems come up don't hesitate to return to visit us. Please follow up with your primary care provider so they can plan additional care if needed and know about the problem that you had. If symptoms worsen come back to the Emergency Department. Any concerning symptoms that start such as chest pain, shortness of air, weakness or numbness on one side of the body, running high fevers or any other concerning symptoms return to the ER. Scripts Hydrocodone/Apap 5-325 (NORCO 5-325 TABLET) 1 Each Tablet 1 TAB PO PRN Q6HRS PRN for PAIN, #10 TAB 0 Refills Prov: GABRIELA CORLEY MD 07/09/19 Hydrocodone/Apap 5-325 (NORCO 5-325 TABLET) 1 Each Tablet 1 TAB PO PRN Q6HRS PRN for PAIN, #10 TAB 0 Refills Prov: GABRIELA CORLEY MD 07/09/19 Problem Qualifiers Primary Impression: Left knee sprain Encounter type: initial encounter Involved ligament of knee: unspecified ligament Qualified Codes: S83.92XA - Sprain of unspecified site of left knee, initial encounter GABRIELA CORLEY MD Jul 09, 2019 14:43
--- NOTE | 2019-07-09 14:57 | RAD ---
KNEE LEFT 4V History: Fall Comparison: September 26, 2017 Findings: 4 views of the left knee are submitted. There is again moderate to severe narrowing of the medial compartment joint space of the left knee with associated osteophyte formation. There is moderate to large suprapatellar joint effusion. As seen on the lateral view only, there is small focus of lucency posteriorly which may be a small fracture of the posterior tibial plateau although not well-visualized on other views. There is also osteoarthritic change of the patellofemoral articulation. Impression: 1. There is suprapatellar joint effusion. There is a small focus of lucency of the posterior, proximal tibia which may be a small fracture. 2. There is osteoarthritic change of the medial compartment. Electronically signed by: Hans Powell MD (07/09/2019 2:54 PM) [facility]
--- NOTE | 2019-07-09 16:20 | RAD ---
Exam: CT left knee without contrast INDICATION: Fall TECHNIQUE: Sequential axial images through the left knee obtained without IV contrast. Sagittal and coronal reformatted images were reconstructed from the axial data and reviewed. Comparisons: Radiographs same day FINDINGS: Moderate-sized suprapatellar effusion. No lipohemarthrosis. No acute or healed fracture identified. Bone mineralization is normal. There is moderate to severe osteoarthritic change at the knee joint greatest in the medial compartment with joint space narrowing, subchondral sclerosis and marginal osteophytosis. There is mild soft tissue swelling in the anterior subcutaneous fat overlying the knee. IMPRESSION: No acute fracture identified. Moderate-sized suprapatellar effusion. Degenerative changes described above. Exposure: One or more of the following in the visualized dose reduction techniques were utilized for this examination: 1. Automated exposure control 2. Adjustment of the MA and/or KV according to patient size 3. Use of iterative of reconstructive technique Electronically signed by: Carolina Whaley MD (07/09/2019 4:17 PM) [facility]
[2019-07-09] MEDS ORDERED: HYDR-3164 PO ×2 (16:42→16:49)
== END 2019-07-09 16:56 | disposition home or self-care (01) ==
LOC: ER 12:45
DX: S83.92XA Sprain of unspecified site of left knee, initial encounter (principal); G89.29 Other chronic pain; I11.0 Hypertensive heart disease with heart failure; I50.9 Heart failure, unspecified; E78.00 Pure hypercholesterolemia, unspecified; I25.10 Atherosclerotic heart disease of native coronary artery without angina pectoris; E11.9 Type 2 diabetes mellitus without complications; Z90.89 Acquired absence of other organs; W00.9XXA Unspecified fall due to ice and snow, initial encounter; Y93.89 Activity, other specified; Y92.89 Other specified places as the place of occurrence of the external cause; Y99.8 Other external cause status
CPT/HCPCS: 73564; 73700; 99285-25

== ENCOUNTER → 2019-08-12 | Outpatient (CLI) | payer OTHER ==
[~2019-08-12] MED LIST changes: +HYDR-3164 PO
--- NOTE | 2019-08-12 16:10 | KCIC ---
KNEE LEFT 3V DATE: 08/12/2019 12:00 AM INDICATION: Knee pain COMPARISON: None. FINDINGS/ IMPRESSION: No acute osseous abnormality. Severe medial compartment degenerative changes, mild lateral and patellofemoral compartment. Moderate knee joint effusion. Electronically signed by: Hans Hawk MD (08/12/2019 4:07 PM) [id number]
== END ==
LOC: KCIC 10:23
PROVIDERS: ATTEND Nurse Practitioner Family
DX: M25.462 Effusion, left knee (principal)
CPT/HCPCS: 73562

== ENCOUNTER → 2019-12-07 | Outpatient (CLI) | payer OTHER ==
--- NOTE | 2019-12-07 09:35 | KCIC ---
MRI Lumbar Spine without contrast History: Bilateral leg weakness, bilateral knee pain Technique: Multiplanar, multi sequential noncontrast MR imaging was performed of the lumbar spine. Comparison: None Findings: Lumbar vertebral body stature is overall maintained. There is grade 1 anterior spondylolisthesis at L4-5. There is qaib-xd-uslspmfj L4-5 degenerative disc disease, to a lesser degree L3-4 and L5-S1. Conus terminates at T12-L1. There is degree of diffuse narrowing of the lumbar neural foramina on a developmental basis. L1-L2: This level was not included on the axial images. Neural foramina and spinal canal are overall adequate. L2-L3: This level was not included on the axial images. Facet degenerative change contributes to additional emnq-gb-zhwgmott narrowing of the left neural foramen and mild narrowing on the right. Spinal canal is not significantly narrowed. There is posterior epidural lipomatosis. L3-L4: There is prominence of posterior epidural fat centrally. There is moderate facet degenerative change and mild buckling of the ligamentum flavum. There is minimal disc osteophyte complex and bulge. There is mild narrowing of the far lateral recesses greater on the left. There is moderate left and wedd-by-chpdckpl right neural foramina compromise, disc osteophyte complex near the undersurfaces of the exiting L3 nerve roots greater on the left. L4-L5: There is moderate to severe facet degenerative change. There is prominence of posterior epidural fat centrally. There is ftus-va-plmkqekv buckling of the ligamentum flavum. There is minimal disc osteophyte complex and bulge. There is moderate to severe narrowing of the far left lateral recess, moderate narrowing of the far right lateral recess, contact of the descending L5 nerve roots greater on the left. There is erhv-wy-ezvldldt narrowing of the central canal. There is moderate to severe bilateral neural foramina compromise somewhat greater on the left, contact of the exiting L4 nerve roots bilaterally primarily from inferiorly by disc osteophyte complex extending to the proximal extraforaminal regions bilaterally. L5-S1: There is mild to moderate facet degenerative change and mild buckling of the ligamentum flavum flavum. There is disc osteophyte complex and shallow protrusion eccentric to left lateral recess with contact of the descending left S1 nerve root, mild left lateral recess stenosis. There is mild additional narrowing of the right neural foramen by facet, fairly severe narrowing of the left neural foramen by disc osteophyte complex and facet. There is also contact of the extraforaminal left L5 nerve root by disc osteophyte complex. Impression: 1. There is moderate to severe left and moderate right lateral recess stenosis at L4-5 with contact of the descending L5 nerve roots, mild left lateral recess stenosis at L5-S1 with contact descending left S1 nerve root. There is mild narrowing of the far lateral recesses greater on the left at L3-4. 2. There is lumbar neural foramina compromise on developmental basis, additional neural foramina compromise as stated. There is more significant narrowing on the left at L5-S1 and bilaterally at L4-5, to a lesser degree bilaterally at L3-4 and on the left at L2-3. 3. There is degenerative disc disease greatest at L4-5 and to lesser degree L3-4 and L5-S1. 4. There is grade 1 anterior spondylolisthesis at L4-5, multilevel lumbar facet degenerative change. Electronically signed by: Hans Powell MD (12/07/2019 9:32 AM) [id number]
--- NOTE | 2019-12-07 10:54 | KCIC ---
EXAM: MRI left shoulder without contrast INDICATION: Impingement. Left shoulder pain for one year. COMPARISON: None TECHNIQUE: Multiplanar, multisequence imaging of the left shoulder without contrast. FINDINGS: The exam is limited by motion artifact on multiple sequences. ROTATOR CUFF: There is a large retracted full-thickness tear of the mid and posterior supraspinatus tendon measuring 5.8 x 2.9 cm (coronal by sagittal). Torn fibers are retracted just medial to the glenoid. Anterior tendon fibers are intact. There is a near-complete full-thickness tear of the infraspinatus tendon with a few far posterior fibers possibly intact. The subscapularis and teres minor tendons are intact. There is severe fatty atrophy of the infraspinatus tendon and mild fatty atrophy of the supraspinatus tendon. LABRUM: Degenerative labral tearing superiorly and posteriorly. BICEPS TENDON: Biceps tendon is grossly intact, evaluation limited by motion artifact.. ACROMIOCLAVICULAR JOINT: Moderate acromioclavicular degenerative joint disease with small osteophytes and capsular hypertrophy. Type II acromion without downsloping. GLENOHUMERAL JOINT: Artifact limits evaluation of cartilage. No definite full-thickness cartilage defect. Chronic osseous changes of greater tuberosity. Marrow signal is normal.. OTHER: Small joint effusion.. IMPRESSION: 1. Limited exam due to motion artifact. 2. Large full-thickness tear of the mid and posterior supraspinatus tendon with torn fibers retracted just medial to the glenoid. Anterior fibers are intact. Mild fatty atrophy of the supraspinatus muscle. 3. Near-complete full-thickness tear of the infraspinatus tendon with a few far posterior fibers possibly intact. Severe fatty atrophy of the infraspinatus muscle. 4. Degenerative labral tearing superiorly and posteriorly. 5. Moderate acromioclavicular degenerative joint disease. Electronically signed by: Nisha Navarrete MD (12/07/2019 10:51 AM) [id number]
== END | disposition home or self-care (01) ==
LOC: KCIC MRI 07:53
PROVIDERS: ATTEND Orthopaedic Surgery
DX: M75.102 Unspecified rotator cuff tear or rupture of left shoulder, not specified as traumatic (principal); M51.37 Other intervertebral disc degeneration, lumbosacral region; M51.27 Other intervertebral disc displacement, lumbosacral region; M43.16 Spondylolisthesis, lumbar region; M48.07 Spinal stenosis, lumbosacral region; M25.78 Osteophyte, vertebrae; M19.012 Primary osteoarthritis, left shoulder; M25.412 Effusion, left shoulder
CPT/HCPCS: 72148; 73221

== ENCOUNTER 2020-12-21 22:38 | Emergency (ER) | payer OTHER ==
[~2020-12-21] VITALS: Ht 182.9 cm; Wt 137.0 kg
[~2020-12-21 22:38] MED LIST changes: +ALBU2.5V8 NEB; +AMLO-187 PO; -AMLO10TA8 PO; +ASPI-886 PO; +ATOR40TA59 PO; +ESCITALOPRAM OX10 MG PO; +HYDR25CA75 PO; -ISOS30TA4 PO; +ISOS30TA68 PO; -ISOS60TA2 PO; +ISOS60TA55 PO; -LISI-334 PO; +LISI20TA18 PO; +METF500T16 PO; +POTA20TA4 PO
[2020-12-22 00:45] VITALS: BP 133/99
[2020-12-22] MEDS ORDERED: HYDR-2761 PO (01:20)
[2020-12-22] MEDS ORDERED: MELO15TA23 PO (01:20)
[2020-12-22] MEDS ORDERED: CYCL10TA2 PO (01:20)
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
== END 2020-12-22 01:40 | disposition home or self-care (01) ==
LOC: ER 22:38
DX: M25.561 Pain in right knee (principal); M25.562 Pain in left knee; R07.89 Other chest pain; G89.11 Acute pain due to trauma; M54.89 Other dorsalgia; M79.669 Pain in unspecified lower leg; I11.0 Hypertensive heart disease with heart failure; I50.9 Heart failure, unspecified; E11.9 Type 2 diabetes mellitus without complications; F17.200 Nicotine dependence, unspecified, uncomplicated; Z90.89 Acquired absence of other organs; V49.9XXA Car occupant (driver) (passenger) injured in unspecified traffic accident, initial encounter; Y93.89 Activity, other specified; Y92.488 Other paved roadways as the place of occurrence of the external cause; Y99.8 Other external cause status
CPT/HCPCS: 99283

== ENCOUNTER 2021-01-14 05:53 | Emergency (ER) | payer OTHER ==
[~2021-01-14] VITALS: Ht 190.5 cm; Wt 145.5 kg
[~2021-01-14 05:53] MED LIST changes: +HYDR-2761 PO; +MELO15TA23 PO
[2021-01-14] MEDS ORDERED: KETOROLAC 60 MG/2 ML VIAL. IM ONE (07:00)
[2021-01-14] MEDS ORDERED: METHOCARBAMOL 750 MG TABLET PO ONE (07:00)
--- NOTE | 2021-01-14 07:53 | RAD ---
Study: 1. XR LUMBAR SPINE 2-3V 2. XR THORACIC SPINE 3VIEWS Indication: Trauma. Pain. Comparison: CT chest 10/22/2020; lumbar spine MRI 12/07/2019 Findings: Thoracic and lumbar spine: Sigmoid thoracolumbar curvature with the thoracic spine directed to the right at T7-T8 and the lumbar spine directed to the left at L2-L3. Findings typical of diffuse idiopathic skeletal hyperostosis. S traightening of thoracic kyphosis. Taking into consideration osseous and soft tissue overlap. No newl y appreciated thoracic or lumbar vertebral body height loss. Redemonstration of grade 1 anterolisthes is of L4 on L5 which appears more pronounced from the 2019 MRI though this could be related to differ ences in technique. Scattered discogenic arthrosis without severe disc space collapse. Multilevel fac et arthrosis appearing greatest at the lower lumbar spine. Incompletely assessed cervical spondylosis. Vascular calcifications. Impression: Thoracic and lumbar spine: 1. No acute radiographic abnormality. 2. Multilevel degenerative changes on a background of sigmoid thoracolumbar curvature. Facet arthrosi s is most notable at the lower lumbar spine with resultant grade 1 anterolisthesis of L4 on L5. Electronically signed by: SANIYA OSHEA MD (01/14/2021 7:50 AM) [facility]
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
[2021-01-14] MEDS ORDERED: CEPH500T PO (08:12)
--- NOTE | 2021-01-14 08:12 | ED.ADGEN ---
Past Medical History Past Medical History: CHF, Diabetes-Type II, Hypertension Additional Past Medical Histor: drug abuse, CHRONIC PAIN Past Surgical History: Appendectomy Smoking Status: Current Some Day Smoker Alcohol Use: Occasionally Drug Use: None General Adult EDM: Chief Complaint: MULTIPLE COMPLAINTS HPI: HPI: Patient is a 55 year old [f__sex] who presents with [] Review of Systems: Review of Systems: Constitutional: Denies fever or chills. [] Eyes: Denies change in visual acuity. [] HENT: Denies nasal congestion or sore throat. [] Respiratory: Denies cough or shortness of breath. [] Cardiovascular: Denies chest pain or edema. [] GI: Denies abdominal pain, nausea, vomiting, bloody stools or diarrhea. [] : Denies dysuria. [] Musculoskeletal: Denies back pain or joint pain. [] Integument: Denies rash. [] Neurologic: Denies headache, focal weakness or sensory changes. [] Endocrine: Denies polyuria or polydipsia. [] Lymphatic: Denies swollen glands. [] Psychiatric: Denies depression or anxiety. [] Current Medications: Current Medications Medications (Trade) Dose Ordered Sig/Franko Start Time Stop Time Status Last Admin Dose Admin Ketorolac Tromethamine (Toradol Im) 60 mg 1X ONCE 01/14/21 07:00 01/14/21 07:01 DC 01/14/21 06:55 60 MG Methocarbamol (Robaxin) 750 mg 1X ONCE 01/14/21 07:00 01/14/21 07:01 DC 01/14/21 06:54 750 MG Allergies: Allergies: Allergies Coded Allergies Type Severity Reaction Last Updated Verified No Known Drug Allergies 11/02/20 No Physical Exam: PE: Constitutional: Well developed, well nourished, no acute distress, non-toxic appearance. [] HENT: Normocephalic, atraumatic, bilateral external ears normal, oropharynx moist, no oral exudates, nose normal. [] Eyes: PERRLA, EOMI, conjunctiva normal, no discharge. [] Neck: Normal range of motion, no tenderness, supple, no stridor. [] Cardiovascular:Heart rate regular rhythm, no murmur [] Lungs & Thorax: Bilateral breath sounds clear to auscultation [] Abdomen: Bowel sounds normal, soft, no tenderness, no masses, no pulsatile masses. [] Skin: Warm, dry, no erythema, no rash. [] Back: No tenderness, no CVA tenderness. [] Extremities: No tenderness, no cyanosis, no clubbing, ROM intact, no edema. [] Neurologic: Alert and oriented X 3, normal motor function, normal sensory function, no focal deficits noted. [] Psychologic: Affect normal, judgement normal, mood normal. [] Current Patient Data: Vital Signs: Vital Signs Date Time Temp Pulse Resp B/P (MAP) Pulse Ox O2 Delivery O2 Flow Rate FiO2 01/14/21 08:35 83 16 157/89 (111) 95 Room Air 01/14/21 06:08 98.2 98.2 EKG: EKG: [] Heart Score: Risk Factors: Risk Factors: DM, Current or recent (<one month) smoker, HTN, HLP, family history of CAD, obesity. Risk Scores: Score 0 - 3: 2.5% MACE over next 6 weeks - Discharge Home Score 4 - 6: 20.3% MACE over next 6 weeks - Admit for Clinical Observation Score 7 - 10: 72.7% MACE over next 6 weeks - Early Invasive Strategies Radiology/Procedures: Radiology/Procedures: [] Course & Med Decision Making: Course & Med Decision Making Pertinent Labs and Imaging studies reviewed. (See chart for details) [] Dragon Disclaimer: Dragon Disclaimer: This electronic medical record was generated, in whole or in part, using a voice recognition dictation system. Departure Departure Impression: Primary Impression: Lumbar strain Additional Impression: Cellulitis Disposition: HOME / SELF CARE / HOMELESS Condition: STABLE Referrals: ZI FRANKLIN MD (PCP) Patient Instructions: Cellulitis, Lumbosacral Strain Scripts Cephalexin (CEPHALEXIN) 500 Mg Tablet 1 TAB PO BID for 7 Days, #14 TAB Prov: AILYN HERRERA MD 01/14/21 Problem Qualifiers AILYN HERRERA MD Jan 14, 2021 08:12
[2021-01-14 08:35] VITALS: BP 157/89
--- NOTE | 2021-01-15 03:28 | EKG ---
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
== END 2021-01-14 08:43 | disposition home or self-care (01) ==
LOC: ER 05:53
DX: S39.012A Strain of muscle, fascia and tendon of lower back, initial encounter (principal); L03.90 Cellulitis, unspecified; I11.0 Hypertensive heart disease with heart failure; I50.9 Heart failure, unspecified; E11.9 Type 2 diabetes mellitus without complications; G89.29 Other chronic pain; F17.200 Nicotine dependence, unspecified, uncomplicated; X50.9XXA Other and unspecified overexertion or strenuous movements or postures, initial encounter; Y93.89 Activity, other specified; Y92.89 Other specified places as the place of occurrence of the external cause; Y99.8 Other external cause status
CPT/HCPCS: 72072; 72100; 93971; 96372; 99284; J1885; 93005